=== PATIENT | male | born 1980 | race Caucasian/White ===

== ENCOUNTER 2018-07-09 12:48 | Outpatient (CLI) | payer BC ==
[~2018-07-09] VITALS: Ht 185.4 cm; Wt 117.9 kg
[~2018-07-09 12:48] MED LIST: AC325T PO; AMOX-358 PO; CEPH500C PO; DOXY-233 PO; DOXY100C2 PO; DOXY100C42 PO; IBUP-16 PO; IBUP200C92 PO; LISI-552 PO; LORA10TA7 PO; LORAZEPAM PO; NAPR-1071 PO; NAPR220C11 PO; NSTU5 PO; ONDA4TAB10 PO; ONDN4T PO; OXYC-188 PO; OXYC1TAB87 PO; RABE20TA PO; TRAM50TA2 PO
[2018-07-09] MEDS ORDERED: RABE20TA27 PO (13:23)
[2018-07-09] MEDS ORDERED: LISI40TA PO (13:23)
[2018-07-10] MEDS ORDERED: PANT40TA2 PO (12:47)
== END 2018-07-09 13:39 | disposition home or self-care (01) ==
LOC: PREOP 12:48
PROVIDERS: ATTEND Surgery
DX: Z01.818 Encounter for other preprocedural examination (principal)

== ENCOUNTER 2018-07-10 10:12 | Day surgery (SDC) | payer BC ==
[~2018-07-10] VITALS: Ht 185.4 cm; Wt 117.9 kg
[~2018-07-10 10:12] MED LIST changes: +LISI40TA PO; +RABE20TA27 PO
[2018-07-10] MEDS ORDERED: LACTATED RINGERS 1,000 ML IV ONE (10:21)
[2018-07-10 10:25] VITALS: BP 145/93
[2018-07-10] MEDS ORDERED: LACTATED RINGERS 1,000 ML IV PRN (10:45)
[2018-07-10] MEDS ORDERED: fentaNYL INJECTION 100 MCG/2 ML AMP IVP ONE (10:45)
[2018-07-10] MEDS ORDERED: MIDAZOLAM 2 MG/2 ML (VERSED) VIAL IVP ONE (10:45)
[2018-07-10] MEDS ORDERED: HURRICAINE EXT TUBE (BENZOCAINE) XX PRN (10:45)
[2018-07-10] MEDS ORDERED: PROPOFOL INJECTION 50 ML IV ONE (11:26)
[2018-07-10] MEDS ORDERED: MIDAZOLAM 2 MG/2 ML (VERSED) VIAL ONE ×2 (11:26→11:58)
--- NOTE | 2018-07-10 11:55 | Progress Note-Pre Operative ---
Pre-Operative Progress Note H&P Reviewed The H&P was reviewed, patient examined and no changes noted except GERD. Date Seen by Provider: Jul 10, 2018 Time Seen by Provider: 11:54 Date H&P Reviewed: Jul 10, 2018 Time H&P Reviewed: 11:55 Pre-Operative Diagnosis: GERD, change in bowel habits OTONIEL TAYLOR DO Jul 10, 2018 11:55
[2018-07-10] MEDS ORDERED: proPOfol 200 MG/20 ML (DIPRIVAN) VIAL IV ONE (12:26)
--- NOTE | 2018-07-10 12:46 | Progress Note-Post Operative ---
Post-Operative Progess Note Surgeon (s)/Commercial Real Estate Assistant (s) Surgeon OTONIEL TAYLOR DO Commercial Real Estate Assistant: na Pre-Operative Diagnosis GERD, change in bowel habits Post-Operative Diagnosis small hiatal hernia, reflux esophagitis, colon polyps x 3 Procedure & Operative Findings Date of Procedure 07/10/18 Procedure Performed/Findings egd c biopsies, colonoscopy c hot bx polypectomy and snare polypectomy x 2 rectosigmoid colon Anesthesia Type mac Estimated Blood Loss Estimated blood loss (mL): scant Specimens/Packing Specimens Removed antrum, ge,descending colon and rectosigmoid polyps x 2 OTONIEL TAYLOR DO Jul 10, 2018 12:45
[2018-07-10] MEDS ORDERED: PANT40TA2 PO (12:47)
--- NOTE | 2018-07-10 12:49 | Discharge Inst-Simple/Standard ---
Discharge Inst-Standard Discharge Medications New, Converted or Re-Newed RX: Transmitted to Pharmacy Patient Instructions/Follow Up Plan of Care/Instructions/FU: 2 weeks Valentín Activity as Tolerated: Yes Discharge Diet: Regular Diet OTONIEL TAYLOR DO Jul 10, 2018 12:49
[2018-07-10 13:10] VITALS: BP 149/63
[2018-07-10 13:40] VITALS: BP 135/86
[2018-07-10 14:05] VITALS: BP 135/86
--- NOTE | 2018-07-10 15:36 | Anesthesia-General Post-Op ---
MAC Patient Condition Mental Status/LOC: Same as Preop Cardiovascular: Satisfactory Nausea/Vomiting: Absent Respiratory: Satisfactory Pain: Controlled Complications: Absent Post Op Complications Complications None Follow Up Care/Instructions Patient Instructions None needed. Anesthesiology Discharge Order Discharge Order Patient is doing well, no complaints, stable vital signs, no apparent adverse anesthesia problems. KYLE ORTA DO Jul 10, 2018 15:36
--- NOTE | 2018-07-10 23:36 | OPERATIVE REPORT ---
DATE OF SERVICE: 07/10/2018 PREOPERATIVE DIAGNOSES: Change in bowel habits, gastroesophageal reflux disease. POSTOPERATIVE DIAGNOSES: Small hiatal hernia, reflux esophagitis, descending colon polyp and 2 rectosigmoid colon polyps. PROCEDURE: EGD with biopsies and colonoscopy with hot biopsy polypectomy of descending colon and snare polypectomy x2 of rectosigmoid polyps. SURGEON: Otoniel Laura DO ANESTHESIA: Per MDA. ESTIMATED BLOOD LOSS: Scant. COMPLICATIONS: None. INDICATIONS: The patient is a 37-year-old male with change in bowel habits and gastroesophageal reflux disease. He understands risks and benefits of procedure and wishes to proceed with procedure. Consent was signed in the chart. DESCRIPTION OF PROCEDURE: The patient was taken to the endoscopy suite and placed in the left lateral recumbent position. Timeout was performed. The scope was inserted in the mouth down the esophagus and into the stomach and duodenum without difficulty. There were no polyps, masses or ulcerations within the duodenum. The scope was slowly retracted back into the stomach where it was further insufflated. Biopsy of the antrum was obtained. There are no polyps, masses or ulcerations. The scope was retroflexed noting a small hiatal hernia. No other pathology noted. The scope was returned to its normal position, slowly withdrawn to the distal esophagus, which had some reflux esophagitis appearance. Biopsy of this area was obtained. The scope was then slowly retracted back to completely remove, noting no other pathology. Digital rectal exam was performed. There were no palpable polyps, mass or ulcerations. The scope was inserted in the rectum and advanced all the way to the cecum with minimal difficulty. There were no polyps, masses or ulceration. Prep was adequate. There were no polyps, masses or ulcerations in the cecum, ascending and transverse colon. Within the descending colon, a small polyp was present, which hot biopsy polypectomy was performed. The scope was continuously retracted back toward the anastomosis, which was present. No polyps, masses or ulcerations. No other pathology at the anastomosis. Just distal to this area, there were 2 small polyps, which had snare polypectomy performed on both and sent in the same specimen. The scope was continuously retracted back into the rectum where it was also retroflexed noting no other pathology. The scope was returned to its normal position, slowly withdrawn until completely removed. The patient tolerated the procedure well without any complications, taken to recovery room in stable condition. RECOMMENDATIONS: The patient on Aciphex, we will change that to Protonix to see if any improvement. We will have him follow up in 2 weeks to discuss pathology results. The patient will need repeat endoscopy in 3 to 5 years. Job ID: [id number] DocumentID: [id number] Dictated Date: 07/10/2018 12:55:41 Machine Gunner Date: 07/10/2018 23:35:44 Dictated By: OTONIEL LAURA DO
== END 2018-07-10 14:05 | disposition home or self-care (01) ==
LOC: ENDO 10:12
PROVIDERS: ATTEND Surgery
DX: K21.0 Gastro-esophageal reflux disease with esophagitis (principal); K44.9 Diaphragmatic hernia without obstruction or gangrene; D12.4 Benign neoplasm of descending colon; K63.5 Polyp of colon; I10 Essential (primary) hypertension; Z79.899 Other long term (current) drug therapy; Z87.891 Personal history of nicotine dependence

== ENCOUNTER 2018-10-20 14:40 | Observation (INO) | payer BC ==
[2018-10-20] VITALS (16 sets, daily range): BP systolic 81–144; BP diastolic 46–96
[~2018-10-20] VITALS: Ht 185.4 cm; Wt 122.2 kg
[~2018-10-20 14:40] MED LIST changes: +PANT40TA2 PO
--- NOTE | 2018-10-20 14:49 | ED Chest Pain ---
General Chief Complaint: Chest pain, nausea, SOB Stated Complaint: CHEST PAIN; NAUSEA; SOB Source: patient, family History of Present Illness Date Seen by Provider: Oct 20, 2018 Time Seen by Provider: 14:49 Timing/Duration: 1 hour Severity/Quality: moderate Location: substernal Radiation: jaw, arms (left) Activities at Onset: rest Prior CP/Workup: no prior cardiac workup ASA po PHOSPHORUS PROCESSING SUPERVISOR: No NTG SL PHOSPHORUS PROCESSING SUPERVISOR: No 38 y/o M with history of HTN, GERD and family history of CAD (father at 39 from [place]) presents with sharp central substernal chest pain that radiates to his jaw and L arm. Pain has been constant, started about 1 hour ago when he woke from sleep. Has associated nausea, diaphoresis, shortness of breath. Nothing seems to improve or worsen. Has been taking GERD meds, this is different than his GERD. Allergies and Home Medications Allergies Coded Allergies: sulfamethoxazole (Verified Allergy, Intermediate, PATIENT GOT DEHYDRATED, 07/09/18) trimethoprim (Verified Allergy, Intermediate, PATIENT GOT DEHYDRATED, ) coconut oil (Verified Allergy, Unknown, 07/09/18) Home Medications Amlodipine Besylate 10 Mg Tablet, 10 MG PO DAILY, (Reported) Pantoprazole Sodium 40 Mg Tablet.dr, 40 MG PO DAILY Prescribed by: OTONIEL TAYLOR on 07/10/18 1247 Patient Home Medication List Home Medication List Reviewed: Yes Review of Systems Review of Systems Constitutional: No chills, No fever EENTM: No Blurred Vision, No Double Vision Respiratory: Denies Cough; Shortness of Air, SOA at Rest Cardiovascular: See HPI, Chest Pain; Denies Edema, Denies Palpitations, Denies Syncope Gastrointestinal: Denies Abdominal Pain; Nausea; Denies Vomiting Genitourinary: Denies Flank Pain, Denies Hematuria Musculoskeletal: No back pain, No joint pain, No muscle pain Skin: No lesions, No rash Psychiatric/Neurological: Denies Numbness, Denies Tingling Past Brospzd-Zwmanc-Ctntwr Hx Past Med/Social Hx: Reviewed Nursing Past Med/Soc Hx Patient Social History Type Used: Cigarettes Former Smoker, Quit: Jul 11, 2013 Recent Hopitalizations: No Immunizations Up To Date Tetanus Booster (TDap): Less than 5yrs Seasonal Allergies Seasonal Allergies: Yes Past Medical History Gallbladder Meningitis Reproductive Disorders: No Sexually Transmitted Disease: No HIV/AIDS: No UTI-Chronic Gastroesophageal Reflux, Chronic Constipation, Chronic Diarrhea, Hiatal Hernia Arthritis, Chronic Back Pain Loss of Vision: Denies Hearing Impairment: Denies Anxiety Adverse Reaction/Blood Tranf: No (N/A) Family Medical History Abdominal aortic aneurysm 19 FATHER Alcoholism 19 MOTHER Cancer 19 MOTHER Cataract 19 FATHER 19 MOTHER Chest pain 19 FATHER 19 MOTHER Congestive heart failure 19 FATHER 19 MOTHER Family history: Arthritis 19 FATHER 19 MOTHER Family history: Cardiovascular disease Family history: Diabetes mellitus 19 MOTHER Family history: Hypertension 19 FATHER 19 MOTHER Heart disease 19 FATHER 19 MOTHER History of drug abuse 19 MOTHER Hypercholesterolemia 19 FATHER Kidney disease Myocardial infarction 19 FATHER No Family History of: [place]'s disease Aphasia Cancer of colon Congenital heart disease Cystic fibrosis Dementia Dysphagia Family history: Allergy Family history: Alzheimer's disease Family history: Asthma Family history: Breast disease Family history: Coronary thrombosis Family history: Gastrointestinal disease Family history: Glaucoma Family history: Osteoporosis Family history: Thyroid disorder Headache Hearing loss Hereditary disease History of - anemia History of - disorder History of - respiratory disease Human immunodeficiency virus (HIV) seropositivity Infertile Malignant neoplasm of lung Parkinson's disease Prostate cancer Psychotic disorder Seizure disorder Stroke Tuberculosis Visual impairment No Pertinent Family Hx Physical Exam Vital Signs Vital Signs - First Documented Capillary Refill : Height, Weight, BMI Height: 6'1.00" Weight: 260lbs. 0.0oz. 117.101323hb; 34.3 BMI Method:Stated General Appearance: Anxious, Mild Distress HEENT: PERRL/EOMI, Normal ENT Inspection Neck: Full Range of Motion, Normal Inspection, Non Tender Respiratory: Chest Non Tender, Lungs Clear, Normal Breath Sounds, No Accessory Muscle Use, No Respiratory Distress Cardiovascular: Regular Rate, Rhythm, No Edema, No Gallop, No JVD, No Murmur, Normal Peripheral Pulses Gastrointestinal: Normal Bowel Sounds, No Organomegaly, No Pulsatile Mass, Non Tender Extremity: Normal Capillary Refill, Normal Inspection, Normal Range of Motion, Non Tender, No Calf Tenderness, No Pedal Edema Neurologic/Psychiatric: Alert, Oriented x3, No Motor/Sensory Deficits, Normal Mood/Affect Skin: Normal Color, Warm/Dry Progress/Results/Core Measures Results/Orders Lab Results Laboratory Tests Test 10/20/18 14:55 10/20/18 16:40 Range/Units White Blood Count 9.1 4.3-11.0 10^3/uL Red Blood Count 5.62 4.35-5.85 10^6/uL Hemoglobin 15.3 13.3-17.7 G/DL Hematocrit 46 40-54 % Mean Corpuscular Volume 81 80-99 FL Mean Corpuscular Hemoglobin 27 25-34 PG Mean Corpuscular Hemoglobin Concent 34 32-36 G/DL Red Cell Distribution Width 14.2 10.0-14.5 % Platelet Count 183 130-400 10^3/uL Mean Platelet Volume 9.6 7.4-10.4 FL Neutrophils (%) (Auto) 44 42-75 % Lymphocytes (%) (Auto) 45 H 12-44 % Monocytes (%) (Auto) 8 0-12 % Eosinophils (%) (Auto) 2 0-10 % Basophils (%) (Auto) 1 0-10 % Neutrophils # (Auto) 4.0 1.8-7.8 X 10^3 Lymphocytes # (Auto) 4.0 1.0-4.0 X 10^3 Monocytes # (Auto) 0.7 0.0-1.0 X 10^3 Eosinophils # (Auto) 2.0 H 0.0-0.3 10^3/uL Basophils # (Auto) 0.1 0.0-0.1 10^3/uL Prothrombin Time 13.6 12.2-14.7 SEC INR Comment 1.0 0.8-1.4 Activated Partial Thromboplast Time 27 24-35 SEC D-Dimer 0.25 0.00-0.49 UG/ML Sodium Level 139 135-145 MMOL/L Potassium Level 3.8 3.6-5.0 MMOL/L Chloride Level 100 98-107 MMOL/L Carbon Dioxide Level 21 21-32 MMOL/L Anion Gap 18 H 5-14 MMOL/L Blood Urea Nitrogen 7 7-18 MG/DL Creatinine 1.11 0.60-1.30 MG/DL Estimat Glomerular Filtration Rate > 60 BUN/Creatinine Ratio 6 Glucose Level 258 H 70-105 MG/DL Calcium Level 9.0 8.5-10.1 MG/DL Corrected Calcium 8.7 8.5-10.1 MG/DL Magnesium Level 1.9 1.8-2.4 MG/DL Total Bilirubin 0.6 0.1-1.0 MG/DL Aspartate Amino Transf (AST/SGOT) 24 5-34 U/L Alanine Aminotransferase (ALT/SGPT) 46 0-55 U/L Alkaline Phosphatase 115 40-136 U/L Troponin T < 6 <=15 NG/L Pro-B-Type Natriuretic Peptide < 5.0 <75.0 PG/ML Total Protein 7.1 6.4-8.2 GM/DL Albumin 4.4 3.2-4.5 GM/DL Lipase 34 8-78 U/L My Orders Orders - CAMACHO CANAS MD Cbc With Automated Diff (10/20/18 14:56) Magnesium (10/20/18 14:56) Chest 1 View Ap/Pa Only (10/20/18 14:56) Ekg Tracing (10/20/18 14:56) Comprehensive Metabolic Panel (10/20/18 14:56) Protime With Inr (10/20/18 14:56) Partial Thromboplastin Time (10/20/18 14:56) O2 (10/20/18 14:56) Monitor-Rhythm Ecg Trace Only (10/20/18 14:56) Aspirin Chewable Tablet (Baby Aspirin Ch (10/20/18 15:00) Morphine Injection (Morphine Injection (10/20/18 14:56) Saline Lock/Iv-Start (10/20/18 14:56) Lipase (10/20/18 14:56) Troponin T (10/20/18 14:56) Probnp Fs (10/20/18 14:56) Fibrin Degradation Products (10/20/18 14:56) Urinalysis (10/20/18 16:25) Drug Screen Stat (Urine) (10/20/18 16:25) Metoprolol Succinate (Xl) Tab (Toprol Xl (10/21/18 09:00) Medications Given in ED Current Medications Medications Dose Ordered Sig/Naricso Route Start Time Stop Time Status Last Admin Dose Admin Aspirin 324 mg ONCE ONCE PO 10/20/18 15:00 10/20/18 15:01 DC 10/20/18 15:05 324 MG Vital Signs/I&O 10/20/18 10/20/18 14:42 14:42 Temp 97.6 Pulse 70 Resp 24 B/P (MAP) 141/93 (109) Pulse Ox 99 O2 Delivery Room Air Room Air Initial ECG Impression Date: Oct 20, 2018 Initial ECG Impression Time: 14:46 Initial ECG Comparisson: No Previous ECG Available Comment NSR 70 bpm, normal axis, normal intervals, RSR in V2, no STEMI. Diagnostic Imaging Diagonstic Imaging: Xray Plain Films/CT/US/NM/MRI: chest Comments no acute process. Departure Communication (Admissions) Time/Spoke to Admitting Phy: 16:[address] Jarrett, who will admit for Observation continued care. Requests UA, UDS, Dr. Mchugh to be notified. Time/Spoke to Consulting Phy: 16:[address] Mchugh, recommends ASA 325 total, admit for r/o, BB metoprolol xl 50 mg, will eval in AM. Impression Primary Impression: Chest pain Disposition: ADMITTED INPATIENT (OBS) Condition: Stable Admissions Decision to Admit Reason: Admit from ER (General) Decision to Admit/Date: Oct 20, 2018 Time/Decision to Admit Time: 16:15 Departure-Patient Inst. Referrals: [facility] (PCP/Family) Primary Care Physician CAMACHO CANAS MD Oct 20, 2018 14:49
[2018-10-20] MEDS ORDERED: morphine INJ 10 MG/ML 1ML (SYR OR VIAL) IV STA (14:56)
[2018-10-20] MEDS ORDERED: ASPIRIN 81 MG CHEW (CHILDREN'S ASA) PO ONE (15:00)
[2018-10-20 15:11] LABS: BASOPHILS # (AUTO) 0.1 10^3/uL (0.0-0.1); BASOPHILS % (AUTO) 1 % (0-10); EOSINOPHILS % (AUTO) 2 % (0-10); HEMATOCRIT 46 % (40-54); HEMOGLOBIN 15.3 G/DL (13.3-17.7); LYMPHOCYTES % (AUTO) 45 % (12-44); MEAN CORPUSCULAR HEMOGLOBIN 27 PG (25-34); MEAN CORPUSCULAR HGB CONC 34 G/DL (32-36); MEAN CORPUSCULAR VOLUME 81 FL (80-99); MEAN PLATELET VOLUME 9.6 FL (7.4-10.4); MONOCYTES # (AUTO) 0.7 X 10^3 (0.0-1.0); MONOCYTES % (AUTO) 8 % (0-12); NEUTROPHILS % (AUTO) 44 % (42-75); PLATELET COUNT 183 10^3/uL (130-400); RED CELL DISTRIBUTION WIDTH 14.2 % (10.0-14.5); WHITE BLOOD COUNT 9.1 10^3/uL (4.3-11.0)
[2018-10-20 15:21] LABS: PROTHROMBIN TIME PATIENT 13.6 SEC (12.2-14.7)
[2018-10-20 15:39] LABS: ALKALINE PHOSPHATASE 115 U/L (40-136); BILIRUBIN,TOTAL 0.6 MG/DL (0.1-1.0); BUN/CREATININE RATIO 6; CARBON DIOXIDE 21 MMOL/L (21-32); CHLORIDE 100 MMOL/L (98-107); CREATININE SERUM 1.11 MG/DL (0.60-1.30); GFR ESTIMATED > 60; GLUCOSE 258 MG/DL (70-105); MAGNESIUM 1.9 MG/DL (1.8-2.4); POTASSIUM 3.8 MMOL/L (3.6-5.0); SODIUM 139 MMOL/L (135-145)
[2018-10-20 15:40] LABS: ALANINE AMINOTRANSFERASE 46 U/L (0-55); ALBUMIN 4.4 GM/DL (3.2-4.5); TOTAL PROTEIN 7.1 GM/DL (6.4-8.2)
[2018-10-20] MEDS ORDERED: AMLO10TA7 PO (15:40)
--- NOTE | 2018-10-20 15:41 | Diagnostic Imaging Report ---
INDICATION: Chest pain. TIME OF EXAM: 02:18 p.m. COMPARISON: Correlation is made with prior study from 10/17/2015. FINDINGS: The heart size is normal. The pulmonary vascularity is unremarkable. The lungs are clear. No infiltrate, effusion or pneumothorax is detected. IMPRESSION: No acute cardiopulmonary process is detected. Dictated by: Dictated on workstation # [id number]
[2018-10-20] MEDS ORDERED: HYDR-3812 (15:42)
[2018-10-20 15:59] LABS: LIPASE 34 U/L (8-78)
[2018-10-20 16:56] LABS: CLARITY,URINE CLEAR; COLOR,URINE YELLOW; PROTEIN,URINE NEGATIVE (NEGATIVE)
[2018-10-20 16:57] LABS: BILIRUBIN,URINE NEGATIVE (NEGATIVE); GLUCOSE, URINE (UA) 3+ (NEGATIVE); KETONES,URINE NEGATIVE (NEGATIVE); LEUKOCYTE ESTERASE ,URINE NEGATIVE (NEGATIVE); NITRITE,URINE NEGATIVE (NEGATIVE); SQUAMOUS EPITHELIAL CELL,UR RARE /HPF; UROBILINOGEN,URINE 0.2 MG/DL (NORMAL)
[2018-10-20] MEDS ORDERED: NITROGLYCERIN 0.4 MG SL TABS BTL 25'S SL ONE (16:58)
[2018-10-20] MEDS ORDERED: NITROGLYCERIN 0.4 MG SL TABS BTL 25'S SL PRN ×2 (17:00→19:00)
[2018-10-20 17:04] LABS: AMPHETAMINE SCREEN, URINE NEGATIVE (NEGATIVE); BARBITURATE SCREEN URINE NEGATIVE (NEGATIVE); BENZODIAZEPINES SCREEN URINE NEGATIVE (NEGATIVE); CANNABINOID SCREEN, URINE NEGATIVE (NEGATIVE); COCAINE SCREEN URINE NEGATIVE (NEGATIVE); METHADONE STAT NEGATIVE (NEGATIVE); METHAMPHETAMINE SCREEN URINE S NEGATIVE (NEGATIVE); OPIATE SCREEN URINE POSITIVE (NEGATIVE); OXYCODONE STAT NEGATIVE (NEGATIVE); PROPOXYPHENE STAT NEGATIVE (NEGATIVE); TRICYCLIC ANTIDEPRESSANTS SCRE NEGATIVE (NEGATIVE)
[2018-10-20] MEDS ORDERED: meTOproloL SUCCINATE 50 MG (TOPROL XL) TAB PO ONE (17:04)
--- NOTE | 2018-10-20 17:45 | NUR ---
PT DEPARTING ER TO [facility] AT THIS TIME. PT IS PAIN FREE.
[2018-10-20] MEDS ORDERED: morphine INJ 4 MG/ML 1 ML (VIAL/SYRINGE) IV PRN (19:00)
--- NOTE | 2018-10-20 19:00 | NUR ---
Received report from Ana 4th floor RN after she got pt settled into his room. NANETTE NATHAN admitted to room 409-1, with an admitting diagnosis of chest pain, on 10/20/18 from ED via EMS transportation, accompanied by .NANETTE NATHAN introduced to surroundings, call light, bed controls, phone, TV, temperature control, lights, meal times, smoking policy, visitor policy, side rail policy, bathrooms and showers. Patient Rights given to patient in the handbook. NANETTE NATHAN verbalizes understanding that [facility] is not responsible for the loss or damage to any personal effects or valuables that are kept in the patients posession during their hospitalization. NANETTE NATHAN verbalizes understanding of Interdisciplinary Patient Education. Patient and/or family were informed about the Rapid Response Team and its purpose.
[2018-10-20] MEDS ORDERED: diphenhydrAMINE 25 MG TAB (BENADRYL) PO PRN (20:30)
[2018-10-20] MEDS ORDERED: ONDANSETRON 4 MG/2 ML (SDV) Z0FRAN IVP PRN (20:30)
[2018-10-20] MEDS ORDERED: DOCUSATE SODIUM 100 MG (COLACE) CAP PO PRN (20:30)
[2018-10-20] MEDS ORDERED: ALPRAZolam 0.25 MG (XANAX) TAB PO PRN (20:30)
[2018-10-20] MEDS ORDERED: fentaNYL INJECTION 100 MCG/2 ML AMP IVP PRN (20:30)
[2018-10-20] MEDS ORDERED: HYDROcodone/APAP 5 MG/325 MG (LORTAB) TAB PO PRN (20:30)
[2018-10-20] MEDS ORDERED: ONDANSETRON 4 MG (ZOFRAN) ORAL DISSOLVE TAB PO PRN (20:30)
[2018-10-20] MEDS ORDERED: MELATONIN 3 MG TABLET PO PRN (20:30)
[2018-10-20] MEDS ORDERED: CALCIUM CARBONATE 500 MG (TUMS) TAB.CHEW PO PRN (20:30)
[2018-10-20] MEDS ORDERED: ACETAMINOPHEN 500 MG TAB (TYLENOL) PO PRN (20:30)
[2018-10-20] MEDS ORDERED: LOPERAMIDE 2 MG (IMODIUM) CAP PO PRN (20:30)
--- NOTE | 2018-10-20 21:43 | Consultation-Cardiology ---
HPI-Cardiology Cardiology Consultation: Date of Consultation 10/20/18 Time Seen by a Provider: 21:10 Date of Admission Attending Physician Sarah Jarrett DO Admitting Physician [place] Consulting Physician GIDEON DALLAS MD, MA, FACP, FACC, [facility], [facility] Physician requesting consult: Dr Jarrett HPI: Chief Complaint: CC: Chest discomfort HPI 38 yo man with an episode chest discomfort: L parasternal, radiating to L shoulder, moderate in intensity, sharp or stabbing, w/o any aggravating or relieving factors, lasting about an hour, not associated with other symptoms, not experienced before Has chronic, mod exertional shortness of breath No palp or syncope or leg swelling Review of Systems-Cardiology Review of Systems Constitutional: No weight loss, No weight gain Eyes: No vision change Ears/Nose/Throat: No ear discharge, No nasal drainage, No recent hearing loss Respiratory: As described under HPI Cardiovascular: As described under HPI Gastrointestinal: No constipation, No diarrhea, No nausea, No vomiting Genitourinary: No dysuria, No hematuria, No urine frequency changes Musculoskeletal: No back pain, No joint pain Skin: No rash, No ulcerations Psychiatric/Neurological: No seizure, No focal weakness, No syncope Hematologic: No bleeding abnormalities GKY-[id number]-Pwwspe Hx Patient Social History Alcohol Use: Rarely Uses Recreational Drug Use: Yes (NONE IN 2 MO) Drug of Choice: THC Smoking Status: Former Smoker Former smoker/When Quit: Feb 02, 2012 Type Used: Cigarettes Recent Foreign Travel: No Recent Infectious Disease Expo: No Hospitalization with Isolation: Denies Immunizations Up To Date Tetanus Booster (TDap): Less than 5yrs Past Medical History PMH As described under Assessment. Family Medical History Family History: Abdominal aortic aneurysm 19 FATHER Alcoholism 19 MOTHER Cancer 19 MOTHER Cataract 19 FATHER 19 MOTHER Chest pain 19 FATHER 19 MOTHER Congestive heart failure 19 FATHER 19 MOTHER Family history: Arthritis 19 FATHER 19 MOTHER Family history: Cardiovascular disease Family history: Diabetes mellitus 19 MOTHER Family history: Hypertension 19 FATHER 19 MOTHER Heart disease 19 FATHER 19 MOTHER History of drug abuse 19 MOTHER Hypercholesterolemia 19 FATHER Kidney disease Myocardial infarction 19 FATHER No Family History of: [place]'s disease Aphasia Cancer of colon Congenital heart disease Cystic fibrosis Dementia Dysphagia Family history: Allergy Family history: Alzheimer's disease Family history: Asthma Family history: Breast disease Family history: Coronary thrombosis Family history: Gastrointestinal disease Family history: Glaucoma Family history: Osteoporosis Family history: Thyroid disorder Headache Hearing loss Hereditary disease History of - anemia History of - disorder History of - respiratory disease Human immunodeficiency virus (HIV) seropositivity Infertile Malignant neoplasm of lung Parkinson's disease Prostate cancer Psychotic disorder Seizure disorder Stroke Tuberculosis Visual impairment Allergies and Home Medications Allergies Coded Allergies: sulfamethoxazole (Verified Allergy, Intermediate, PATIENT GOT DEHYDRATED, 07/09/18) trimethoprim (Verified Allergy, Intermediate, PATIENT GOT DEHYDRATED, ) coconut oil (Verified Allergy, Unknown, 07/09/18) Home Medications Amlodipine Besylate 10 Mg Tablet, 10 MG PO DAILY, (Reported) Pantoprazole Sodium 40 Mg Tablet.dr, 40 MG PO DAILY Prescribed by: OTONIEL TAYLOR on 07/10/18 1247 Patient Home Medication List Home Medication List Reviewed: Yes Physical Exam-Cardiology Physical Exam Vital Signs/I&O 10/20/18 10/20/18 10/20/18 10/20/18 14:42 14:42 14:45 15:00 Temp 97.6 97.6 Pulse 70 70 71 Resp 24 24 24 B/P (MAP) 141/93 (109) 141/93 (109) 133/91 (105) Pulse Ox 99 99 96 O2 Delivery Room Air Room Air Room Air Room Air 10/20/18 10/20/18 10/20/18 10/20/18 15:15 15:30 15:45 16:00 Pulse 76 75 73 66 Resp 22 16 14 20 B/P (MAP) 143/96 (112) 139/88 (105) 139/81 (100) 144/77 (99) Pulse Ox 97 97 95 94 O2 Delivery Room Air Room Air Room Air Room Air 10/20/18 10/20/18 10/20/18 10/20/18 16:15 16:30 16:45 17:00 Pulse 81 75 75 76 Resp 15 22 16 14 B/P (MAP) 137/85 (102) 143/87 (105) 135/93 (107) 140/91 (107) Pulse Ox 98 96 96 98 O2 Delivery Room Air Room Air Room Air Room Air 10/20/18 10/20/18 10/20/18 10/20/18 17:15 17:30 17:45 18:42 Temp 97.6 97.5 Pulse 74 63 63 64 Resp 16 16 20 18 B/P (MAP) 81/46 (58) 95/53 (67) 95/53 (67) 116/77 Pulse Ox 95 96 96 97 O2 Delivery Room Air Room Air Room Air Room Air 10/20/18 10/20/18 10/20/18 10/20/18 18:45 18:46 19:50 19:54 Temp 97.5 97.5 97.5 Pulse 64 62 66 Resp 18 18 B/P (MAP) 116/77 (90) 116/77 (90) 113/71 (85) Pulse Ox 97 97 O2 Delivery Room Air Room Air Capillary Refill : Less Than 3 Seconds Constitutional: AAO x 3, well-nourished HEENT: PERRL, EOMI, hearing is well preserved; No xanthelasmas are seen Neck: carotid pulses are 2 + bilaterally, with good upstrokes Respiratory: No accessory muscle use; lungs clear to percussion, lungs clear to auscultation Cardiovascular: regular rate-rhythm, S1 and S2, systolic murmur (faint CLEO at card base) Gastrointestinal: No tender; soft; No guarding, No rebound; audible bowel sounds Extremities: No clubbing, No cyanosis, No significant edema Neurologic/Psychiatric: oriented x 3, grossly intact, power is 5/5 both on sides Skin: No rash on exposed areas, No ulcerations on exposed areas Data Review Labs Laboratory Tests 10/20/18 14:55: White Blood Count 9.1, Red Blood Count 5.62, Hemoglobin 15.3, Hematocrit 46, Mean Corpuscular Volume 81, Mean Corpuscular Hemoglobin 27, Mean Corpuscular Hemoglobin Concent 34, Red Cell Distribution Width 14.2, Platelet Count 183, Mean Platelet Volume 9.6, Neutrophils (%) (Auto) 44, Lymphocytes (%) (Auto) 45H , Monocytes (%) (Auto) 8, Eosinophils (%) (Auto) 2, Basophils (%) (Auto) 1, Neutrophils # (Auto) 4.0, Lymphocytes # (Auto) 4.0, Monocytes # (Auto) 0.7, Eosinophils # (Auto) 2.0H, Basophils # (Auto) 0.1, Prothrombin Time 13.6, INR Comment 1.0, Activated Partial Thromboplast Time 27, D-Dimer 0.25, Sodium Level 139, Potassium Level 3.8, Chloride Level 100, Carbon Dioxide Level 21, Anion Gap 18H, Blood Urea Nitrogen 7, Creatinine 1.11, Estimat Glomerular Filtration Rate > 60, BUN/Creatinine Ratio 6, Glucose Level 258H, Calcium Level 9.0, Corrected Calcium 8.7, Magnesium Level 1.9, Total Bilirubin 0.6, Aspartate Amino Transf (AST/SGOT) 24, Alanine Aminotransferase (ALT/SGPT) 46, Alkaline Phosphatase 115, Troponin T < 6, Pro-B-Type Natriuretic Peptide < 5.0, Total Protein 7.1, Albumin 4.4, Lipase 34 10/20/18 16:40: Urine Color YELLOW, Urine Clarity CLEAR, Urine pH 6.0, Urine Specific [place] 1.015L, Urine Protein NEGATIVE, Urine Glucose (UA) 3+H, Urine Ketones NEGATIVE, Urine Nitrite NEGATIVE, Urine Bilirubin NEGATIVE, Urine Urobilinogen 0.2, Urine Leukocyte Esterase NEGATIVE, Urine RBC (Auto) NEGATIVE, Urine RBC NONE, Urine WBC NONE, Urine Squamous Epithelial Cells RARE, Urine Crystals NONE, Urine Bacteria NONE, Urine Casts NONE, Urine Mucus NEGATIVE, Urine Culture Indicated NO, Urine Opiates Screen POSITIVEH, Urine Oxycodone Screen NEGATIVE, Urine Methadone Screen NEGATIVE, Urine Propoxyphene Screen NEGATIVE, Urine Barbiturates Screen NEGATIVE, Ur Tricyclic Antidepressants Screen NEGATIVE, Urine Phencyclidine Screen NEGATIVE, Urine Amphetamines Screen NEGATIVE, Urine Methamphetamines Screen NEGATIVE, Urine Benzodiazepines Screen NEGATIVE, Urine Cocaine Screen NEGATIVE, Urine Cannabinoids Screen NEGATIVE 10/20/18 21:01: Troponin I < 0.028 Laboratory Tests 10/20/18 14:55 A/P-Cardiology Assessment/Admission Diagnosis Chest discomfort, non-specific, etiology undetermined Hyperglycemia, suggestive of DM II Hypertension Fam h/o early CAD (father suddenly at age 39) Obesity with BMI 35.5 H/o partial L nephrectomy for a renal cancer the details of which are not known to the patient and for which he follows at H/o colon resection of diverticulitis Discussion and Recomendations * Treat with ASA and beta-biju * Serial card enz and ECG * Dr Mix covering Card Svce beginning tomorrow Clinical Quality Measures AMI/AHF: ASA po Prior to arrival: GIDEON Cazares MD [facility] Oct 20, 2018 21:43
[2018-10-21] VITALS: BP 115/75
[2018-10-21 04:10] VITALS: BP 114/74
[2018-10-21 06:10] LABS: BASOPHILS # (AUTO) 0.1 10^3/uL (0.0-0.1); BASOPHILS % (AUTO) 1 % (0-10); EOSINOPHILS # (AUTO) 0.2 10^3/uL (0.0-0.3); EOSINOPHILS % (AUTO) 2 % (0-10); HEMATOCRIT 44 % (40-54); HEMOGLOBIN 14.8 G/DL (13.3-17.7); LYMPHOCYTES # (AUTO) 3.5 X 10^3 (1.0-4.0); LYMPHOCYTES % (AUTO) 38 % (12-44); MEAN CORPUSCULAR HEMOGLOBIN 27 PG (25-34); MEAN CORPUSCULAR HGB CONC 34 G/DL (32-36); MEAN CORPUSCULAR VOLUME 80 FL (80-99); MEAN PLATELET VOLUME 9.8 FL (7.4-10.4); MONOCYTES # (AUTO) 0.6 X 10^3 (0.0-1.0); MONOCYTES % (AUTO) 7 % (0-12); NEUTROPHILS # (AUTO) 4.8 X 10^3 (1.8-7.8); NEUTROPHILS % (AUTO) 52 % (42-75); PLATELET COUNT 210 10^3/uL (130-400); RED CELL DISTRIBUTION WIDTH 15.2 % (10.0-14.5); WHITE BLOOD COUNT 9.1 10^3/uL (4.3-11.0)
[2018-10-21 06:29] LABS: ALANINE AMINOTRANSFERASE 60 U/L (0-55); ALBUMIN 4.1 GM/DL (3.2-4.5); ALKALINE PHOSPHATASE 71 U/L (40-136); BILIRUBIN,TOTAL 0.7 MG/DL (0.1-1.0); BUN/CREATININE RATIO 8; CALCIUM 8.9 MG/DL (8.5-10.1); CARBON DIOXIDE 25 MMOL/L (21-32); CHLORIDE 104 MMOL/L (98-107); CHOLESTEROL 180 MG/DL (< 200); GFR ESTIMATED > 60; GLUCOSE 153 MG/DL (70-105); HDL CHOLESTEROL 30 MG/DL (40-60); SODIUM 139 MMOL/L (135-145); TOTAL PROTEIN 6.7 GM/DL (6.4-8.2); TRIGLYCERIDES 161 MG/DL (<150); VLDL CHOLESTEROL 32 MG/DL (5-40)
[2018-10-21 08:00] VITALS: BP 121/72
[2018-10-21] MEDS ORDERED: PANT40TA3 PO (08:32)
[2018-10-21] MEDS ORDERED: meTOproloL SUCCINATE 50 MG (TOPROL XL) TAB PO ONE (09:00)
[2018-10-21] MEDS: ASPIRIN 81 MG CHEW (CHILDREN'S ASA) PO SCH (09:25)
[2018-10-21] MEDS: meTOproloL SUCCINATE 50 MG (TOPROL XL) TAB PO SCH (09:51)
[2018-10-21] MEDS ORDERED: REGADENOSON 0.4 MG/5 ML SYR (LEXISCAN) IV ONE (11:00)
--- NOTE | 2018-10-21 11:06 | Short Stay Summary-Hospitalist ---
History of Present Illness HPI/Chief Complaint CC: Chest pain HPI: This is a 38yoWM clinic patient of [facility] Shelbi Chakraborty who has h/o HTN and GERD who presented to the [facility] ER with chest pain and nausea. He states his father of an AMI at 39yo. Patient was deemed stable and in need of risk stratification and Cardiology has arranged ECHO today then EST tomorrow. Patient does not smoke. Source: patient, RN/MD Exam Limitations: no limitations Date Seen 10/21/18 Time Seen by a Provider: 10:30 Attending Physician Sarah Jarrett DO [facility] Referring Physician Date of Admission Oct 20, 2018 at 16:29 Home Medications & Allergies Home Medications Reviewed patient Home Medication Reconciliation performed by pharmacy medication reconciliations fibre composite technician and/or nursing. Patients Allergies have been reviewed. Allergies Allergies Coded Allergies sulfamethoxazole (Verified Allergy, Intermediate, PATIENT GOT DEHYDRATED, ) trimethoprim (Verified Allergy, Intermediate, PATIENT GOT DEHYDRATED, 07/09/18 ) coconut oil (Verified Allergy, Unknown, 07/09/18) Past Hetoxnp-[id number]-Psgmxu Hx Past Med/Social Hx: Reviewed Nursing Past Med/Soc Hx, Reviewed and Corrections made Patient Social History Marrital Status: Employed/Student: employed ([employer] 3 yrs) Alcohol Use: Rarely Uses Alcohol Beverage of Choice: Beer Recreational Drug Use: Yes (NONE IN 2 MO) Drug of Choice: THC Smoking Status: Former Smoker Former Smoker, Quit: Jul 11, 2013 Type Used: Cigarettes Recent Foreign Travel: No Contact w/other who traveled: No Recent Hopitalizations: No Recent Infectious Disease Expo: No Immunizations Up To Date Tetanus Booster (TDap): Less than 5yrs Seasonal Allergies Seasonal Allergies: Yes Past Medical History Surgeries: Gallbladder Cardiac: Hypertension Neurological: Meningitis Reproductive: No Sexually Transmitted Disease: No HIV/AIDS: No Genitourinary: UTI-Chronic Gastrointestinal: Gastroesophageal Reflux, Chronic Constipation, Chronic Diarrhea, Hiatal Hernia Musculoskeletal: Arthritis, Chronic Back Pain Loss of Vision: Denies Hearing Impairment: Denies Cancer: Kidney Psychosocial: Anxiety History of Blood Disorders: No Adverse Reaction to Blood Del Real: No (N/A) Family History Abdominal aortic aneurysm 19 FATHER Alcoholism 19 MOTHER Cancer 19 MOTHER Cataract 19 FATHER 19 MOTHER Chest pain 19 FATHER 19 MOTHER Congestive heart failure 19 FATHER 19 MOTHER Family history: Arthritis 19 FATHER 19 MOTHER Family history: Cardiovascular disease Family history: Diabetes mellitus 19 MOTHER Family history: Hypertension 19 FATHER 19 MOTHER Heart disease 19 FATHER 19 MOTHER History of drug abuse 19 MOTHER Hypercholesterolemia 19 FATHER Kidney disease Myocardial infarction 19 FATHER No Family History of: Patrick's disease Aphasia Cancer of colon Congenital heart disease Cystic fibrosis Dementia Dysphagia Family history: Allergy Family history: Alzheimer's disease Family history: Asthma Family history: Breast disease Family history: Coronary thrombosis Family history: Gastrointestinal disease Family history: Glaucoma Family history: Osteoporosis Family history: Thyroid disorder Headache Hearing loss Hereditary disease History of - anemia History of - disorder History of - respiratory disease Human immunodeficiency virus (HIV) seropositivity Infertile Malignant neoplasm of lung Parkinson's disease Prostate cancer Psychotic disorder Seizure disorder Stroke Tuberculosis Visual impairment No Pertinent Family Hx Review of Systems Constitutional: see HPI EENTM: no symptoms reported Respiratory: no symptoms reported Cardiovascular: chest pain Gastrointestinal: nausea Genitourinary: no symptoms reported Musculoskeletal: no symptoms reported Skin: no symptoms reported Psychiatric/Neurological: No Symptoms Reported All Other Systems Reviewed Negative Unless Noted: Yes Physical Exam Physical Exam Vital Signs Vital Signs - First Documented Capillary Refill : Less Than 3 Seconds Height, Weight, BMI Height: 6'1.00" Weight: 269lbs. 5.0oz. 122.304410wj; 35.5 BMI Method:Stated General Appearance: No Apparent Distress, WD/WN, Anxious, Chronically ill, Obese HEENT: PERRL/EOMI, Normal ENT Inspection Neck: Full Range of Motion, Normal Inspection, Non Tender Respiratory: Chest Non Tender, Lungs Clear, Normal Breath Sounds, No Accessory Muscle Use, No Respiratory Distress Cardiovascular: Regular Rate, Rhythm, No Edema, No Gallop, No JVD, No Murmur, Normal Peripheral Pulses Gastrointestinal: Normal Bowel Sounds, No Organomegaly, No Pulsatile Mass, Non Tender Extremity: Normal Capillary Refill, Normal Inspection, Normal Range of Motion, Non Tender, No Calf Tenderness, No Pedal Edema Neurologic/Psychiatric: Alert, Oriented x3, No Motor/Sensory Deficits, Normal Mood/Affect Skin: Normal Color, Warm/Dry Results Results/Procedures Labs Laboratory Tests 10/20/18 14:55 10/21/18 05:49 Patient resulted labs reviewed. Short Stay Diagnosis Discharge Diagnosis-Short Stay Admission Diagnosis Chest pain HTN Former smoker Father at 39yo of AMI GERD Final Discharge Diagnosis Chest pain HTN Former smoker Father at 39yo of AMI GERD Conclusion Plan Cardiology is appreciated ECHO today EST tomorrow Cardiac diet in meantime Diagnosis/Problems Diagnosis/Problems (1) Chest pain Status: Acute Qualifiers: Qualified Codes: R07.9 - Chest pain, unspecified (2) Former smoker Status: Chronic (3) GERD (gastroesophageal reflux disease) Status: Chronic Qualifiers: Qualified Codes: K21.9 - Gastro-esophageal reflux disease without esophagitis (4) Hypertension Status: Chronic Qualifiers: Qualified Codes: I10 - Essential (primary) hypertension (5) Family history of sudden cardiac in father Clinical Quality Measures AMI/AHF: ASA po Prior to arrival: No DVT/VTE Risk/Contraindication: Risk Factor Score Per Nursin RFS Level Per Nursing on Admit: 1=Low/No VTE PPX SARAH JARRETT DO Oct 21, 2018 11:06
[2018-10-21 12:00] VITALS: BP 124/65
--- NOTE | 2018-10-21 13:59 | Cardiology Progress Note ---
Cardiology SOAP Progress Note Subjective: Chest pain resolved. Objective: I&O/Vital Signs 10/21/18 10/21/18 10/21/18 10/21/18 04:10 07:08 07:30 08:00 Temp 97.8 97.0 Pulse 55 68 59 Resp 14 20 B/P (MAP) 114/74 (87) 121/72 (88) Pulse Ox 98 97 O2 Delivery Room Air Room Air Room Air 10/21/18 10/21/18 12:00 12:52 Temp 97.3 Pulse 64 60 Resp 20 B/P (MAP) 124/65 (84) Pulse Ox 96 O2 Delivery Room Air 10/21/18 00:00 Intake Total 200 ml Output Total 0 ml Balance 200 ml Weight (Pounds): 269 Weight (Ounces): 5.0 Weight (Calculated Kilograms): 122.436004 Constitutional: No appears stated age; AAO x 3; No apparent distress, No PERRL , No well-developed; well-nourished; No other Respiratory: No accessory muscle use, No respiratory distress, No chest tender , No chest expansion is symmetric; chest is bilaterally symmetric, lungs clear to percussion, lungs clear to auscultation; No crackles, No rhonchi, No rales, No stridor, No wheezing, No pleural rub, No other Cardiovascular: regular rate-rhythm; No irregularly irregular, No extra beats, No parasternal heave is noted, No JVD, No edema, No bradycardia, No tachycardia , No point of maximal impulse, No cardiac thrills are palpable; S1 and S2; No gallop/S3, No gallop/S4, No diastolic murmur; systolic murmur; No friction rub, No click, No other Gastrointestional: No tender; soft; No round, No distended, No pulsatile mass, No organomegaly, No guarding, No rebound, No tenderness, No hernia, No mass; audible bowel sounds; No abnormal bowel sounds, No abdominal bruits, No spleenomegaly, No other Extremities: No normal range of motion, No non-tender, No normal inspection, No pedal edema, No calf tenderness, No normal capillary refill, No pelvis stable , No calf tenderness, No inflammation, No pedal edema, No slow capillary refill , No swelling, No other, No abrasion, No clubbing, No cyanosis, No ecchymosis, No laceration, No no lower extremity edema bilateral, No significant edema, No tenderness, No wound Neurologic/Psychiatric: no motor/sensory deficits, alert, normal mood/affect, oriented x 3, grossly intact, power is 5/5 both on sides Skin: No normal color, No warm/dry, No cyanosis, No cool, No diaphoresis, No damp, No ecchymosis, No jaundice, No mottled, No pallor, No rash, No tattoos/ piercings, No ulcerations, No rash on exposed areas, No ulcerations on exposed areas, No other Results/Procedures: Labs Laboratory Tests 10/20/18 14:55: White Blood Count 9.1, Red Blood Count 5.62, Hemoglobin 15.3, Hematocrit 46, Mean Corpuscular Volume 81, Mean Corpuscular Hemoglobin 27, Mean Corpuscular Hemoglobin Concent 34, Red Cell Distribution Width 14.2, Platelet Count 183, Mean Platelet Volume 9.6, Neutrophils (%) (Auto) 44, Lymphocytes (%) (Auto) 45H , Monocytes (%) (Auto) 8, Eosinophils (%) (Auto) 2, Basophils (%) (Auto) 1, Neutrophils # (Auto) 4.0, Lymphocytes # (Auto) 4.0, Monocytes # (Auto) 0.7, Eosinophils # (Auto) 2.0H, Basophils # (Auto) 0.1, Prothrombin Time 13.6, INR Comment 1.0, Activated Partial Thromboplast Time 27, D-Dimer 0.25, Sodium Level 139, Potassium Level 3.8, Chloride Level 100, Carbon Dioxide Level 21, Anion Gap 18H, Blood Urea Nitrogen 7, Creatinine 1.11, Estimat Glomerular Filtration Rate > 60, BUN/Creatinine Ratio 6, Glucose Level 258H, Calcium Level 9.0, Corrected Calcium 8.7, Magnesium Level 1.9, Total Bilirubin 0.6, Aspartate Amino Transf (AST/SGOT) 24, Alanine Aminotransferase (ALT/SGPT) 46, Alkaline Phosphatase 115, Troponin T < 6, Pro-B-Type Natriuretic Peptide < 5.0, Total Protein 7.1, Albumin 4.4, Lipase 34 10/20/18 16:40: Urine Color YELLOW, Urine Clarity CLEAR, Urine pH 6.0, Urine Specific [place] 1.015L, Urine Protein NEGATIVE, Urine Glucose (UA) 3+H, Urine Ketones NEGATIVE, Urine Nitrite NEGATIVE, Urine Bilirubin NEGATIVE, Urine Urobilinogen 0.2, Urine Leukocyte Esterase NEGATIVE, Urine RBC (Auto) NEGATIVE, Urine RBC NONE, Urine WBC NONE, Urine Squamous Epithelial Cells RARE, Urine Crystals NONE, Urine Bacteria NONE, Urine Casts NONE, Urine Mucus NEGATIVE, Urine Culture Indicated NO, Urine Opiates Screen POSITIVEH, Urine Oxycodone Screen NEGATIVE, Urine Methadone Screen NEGATIVE, Urine Propoxyphene Screen NEGATIVE, Urine Barbiturates Screen NEGATIVE, Ur Tricyclic Antidepressants Screen NEGATIVE, Urine Phencyclidine Screen NEGATIVE, Urine Amphetamines Screen NEGATIVE, Urine Methamphetamines Screen NEGATIVE, Urine Benzodiazepines Screen NEGATIVE, Urine Cocaine Screen NEGATIVE, Urine Cannabinoids Screen NEGATIVE 10/20/18 21:01: Troponin I < 0.028 10/21/18 05:49: White Blood Count 9.1, Red Blood Count 5.47, Hemoglobin 14.8, Hematocrit 44, Mean Corpuscular Volume 80, Mean Corpuscular Hemoglobin 27, Mean Corpuscular Hemoglobin Concent 34, Red Cell Distribution Width 15.2H, Platelet Count 210, Mean Platelet Volume 9.8, Neutrophils (%) (Auto) 52, Lymphocytes (%) (Auto) 38, Monocytes (%) (Auto) 7, Eosinophils (%) (Auto) 2, Basophils (%) (Auto) 1, Neutrophils # (Auto) 4.8, Lymphocytes # (Auto) 3.5, Monocytes # (Auto) 0.6, Eosinophils # (Auto) 0.2, Basophils # (Auto) 0.1, Sodium Level 139, Potassium Level 4.0, Chloride Level 104, Carbon Dioxide Level 25, Anion Gap 10, Blood Urea Nitrogen 9, Creatinine 1.20, Estimat Glomerular Filtration Rate > 60, BUN/ Creatinine Ratio 8, Glucose Level 153H, Calcium Level 8.9, Corrected Calcium 8.8 , Total Bilirubin 0.7, Aspartate Amino Transf (AST/SGOT) 36H, Alanine Aminotransferase (ALT/SGPT) 60H, Alkaline Phosphatase 71, Total Protein 6.7, Albumin 4.1, Triglycerides Level 161H, Cholesterol Level 180, LDL Cholesterol Direct 124, VLDL Cholesterol 32, HDL Cholesterol 30L A/P: Assessment/Dx: Chest discomfort, non-specific, etiology undetermined Hyperglycemia, suggestive of DM II Hypertension Fam h/o early CAD (father suddenly at age 39) Obesity with BMI 35.5 H/o partial L nephrectomy for a renal cancer the details of which are not known to the patient and for which he follows at H/o colon resection of diverticulitis Plan: * Treat with ASA and beta-biju * Negative serial cardiac enzymes and EKG. Echocardiogram and nuclear stress test in the morning. Thank you for your consultation. Please call me if you have any questions. Mio Mix MD, FACP, FACC, FSCAI, FHRS, CCDS Interventional Cardiology Cardiac Electrophysiology Vascular Medicine and Endovascular Interventions Clinical Quality Measures AMI/AHF: ASA po Prior to arrival: Jose Lopze MD Oct 21, 2018 13:59
[2018-10-21 15:48] VITALS: BP 110/64
[2018-10-21] MEDS ORDERED: FLU QUADRIvalent (5+ YOA) 2018-2019 (AFLURIA) 0.5 ML IM ONE (16:00)
[2018-10-21 20:23] VITALS: BP 106/65
[2018-10-22 00:48] VITALS: BP 105/65
[2018-10-22 03:45] VITALS: BP 121/72
[2018-10-22] MEDS ORDERED: CATHETER FLUSH 10 ML SYR IV PRN (07:00)
[2018-10-22] MEDS: ASPIRIN 81 MG CHEW (CHILDREN'S ASA) PO SCH (09:00)
[2018-10-22] MEDS: meTOproloL SUCCINATE 50 MG (TOPROL XL) TAB PO SCH (09:00)
[2018-10-22] MEDS ORDERED: REGADENOSON 0.4 MG/5 ML SYR (LEXISCAN) IV ONE (09:12)
[2018-10-22 10:15] VITALS: BP 139/82
--- NOTE | 2018-10-22 10:33 | NUR ---
CALLED DR MUSTAFA. KEEP PATIENT NPO UNTIL HE REVIEWS HIS STRESS TEST RESULTS.
[2018-10-22 12:00] VITALS: BP 142/87
[2018-10-22 14:50] VITALS: BP 139/82
--- NOTE | 2018-10-22 15:04 | Cardiology Stress Test Report ---
Stress Test Report Type of NM Stress Test: Test Type: LEXISCAN 0.4MG/5ML Date of Procedure/Referring: Date of Procedure: Oct 22, 2018 PCP Sarah Jarrett DO Admitting Physician [place] Indications: Chest pain. Baseline Heart Rate: 63 Baseline Blood Pressure: Blood Pressure Systolic: 139 Blood Pressure Diastolic: 82 Baseline EKG: Baseline EKG: sinus rhythm Summary & Conclusion: Summary: The patient was brought to the stress lab after informed consent was taken. Stress test was performed according to the Lexiscan protocol. 0.4 mg of IV Lexiscan was given. Low-grade exercise was performed. Baseline EKG showed sinus rhythm at 63 BPM. Initial blood pressure was 147/93 mmHg. Maximum heart rate was 112 bpm and blood pressure 154/82 mmHg. Patient did not have any chest pain, arrhythmias or ST segment changes during the stress test. 10.26 mCi of Myoview were given for rest imaging and 29.5 mCi of Myoview given for stress imaging. Transient ischemic dilatation score 1.04, EF 58 percent. Normal wall motion. Normal myocardial perfusion imaging during rest and stress. Conclusion: Pharmacological stress test was negative for ischemia. Normal LV function with no wall motion abnormalities. Normal myocardial perfusion imaging during rest and stress. Jose MUSTAFA MD Oct 22, 2018 15:04
--- NOTE | 2018-10-22 15:04 | Cardiology Progress Note ---
Cardiology SOAP Progress Note Subjective: No further chest pain. Objective: I&O/Vital Signs 10/22/18 10/22/18 10/22/18 10/22/18 07:00 08:00 08:00 10:15 Temp 97.8 Pulse 70 58 Resp 20 B/P (MAP) 139/82 (101) Pulse Ox 98 O2 Delivery Room Air Room Air Room Air 10/22/18 10/22/18 10/22/18 12:00 13:06 14:50 Temp 97.9 Pulse 69 79 79 Resp 20 20 B/P (MAP) 142/87 (105) 139/82 Pulse Ox 99 98 O2 Delivery Room Air Room Air 10/22/18 00:00 Intake Total 1200 ml Output Total 1300 ml Balance -100 ml Weight (Pounds): 269 Weight (Ounces): 5.0 Weight (Calculated Kilograms): 122.427658 Constitutional: No appears stated age; AAO x 3; No apparent distress, No PERRL , No well-developed; well-nourished; No other Respiratory: No accessory muscle use, No respiratory distress, No chest tender , No chest expansion is symmetric; chest is bilaterally symmetric, lungs clear to percussion, lungs clear to auscultation; No crackles, No rhonchi, No rales, No stridor, No wheezing, No pleural rub, No other Cardiovascular: regular rate-rhythm; No irregularly irregular, No extra beats, No parasternal heave is noted, No JVD, No edema, No bradycardia, No tachycardia , No point of maximal impulse, No cardiac thrills are palpable; S1 and S2; No gallop/S3, No gallop/S4, No diastolic murmur; systolic murmur; No friction rub, No click, No other Gastrointestional: No tender; soft; No round, No distended, No pulsatile mass, No organomegaly, No guarding, No rebound, No tenderness, No hernia, No mass; audible bowel sounds; No abnormal bowel sounds, No abdominal bruits, No spleenomegaly, No other Extremities: No normal range of motion, No non-tender, No normal inspection, No pedal edema, No calf tenderness, No normal capillary refill, No pelvis stable , No calf tenderness, No inflammation, No pedal edema, No slow capillary refill , No swelling, No other, No abrasion, No clubbing, No cyanosis, No ecchymosis, No laceration, No no lower extremity edema bilateral, No significant edema, No tenderness, No wound Neurologic/Psychiatric: no motor/sensory deficits, alert, normal mood/affect, oriented x 3, grossly intact, power is 5/5 both on sides Skin: No normal color, No warm/dry, No cyanosis, No cool, No diaphoresis, No damp, No ecchymosis, No jaundice, No mottled, No pallor, No rash, No tattoos/ piercings, No ulcerations, No rash on exposed areas, No ulcerations on exposed areas, No other Results/Procedures: Labs Laboratory Tests 10/22/18 12:09: Glucometer 156H A/P: Assessment/Dx: Chest discomfort, non-specific, etiology undetermined Hyperglycemia, suggestive of DM II Hypertension Fam h/o early CAD (father suddenly at age 39) Obesity with BMI 35.5 H/o partial L nephrectomy for a renal cancer the details of which are not known to the patient and for which he follows at H/o colon resection of diverticulitis Plan: * Treat with ASA and beta-ibju * Negative serial cardiac enzymes and EKG. * Nuclear stress test is negative for any ischemia or infarct. * Patient can be discharged to follow-up as an outpatient. Thank you for your consultation. Please call me if you have any questions. Mio Mix MD, FACP, FACC, FSCAI, FHRS, CCDS Interventional Cardiology Cardiac Electrophysiology Vascular Medicine and Endovascular Interventions Clinical Quality Measures AMI/AHF: ASA po Prior to arrival: Jose Lopez MD Oct 22, 2018 15:04
== END 2018-10-22 14:50 | disposition home or self-care (01) ==
LOC: EDUNIT# 14:40 → ER FS 14:42 → 4TH 16:29
PROVIDERS: ADMIT Internal Medicine; ATTEND Internal Medicine
DX: R07.9 Chest pain, unspecified (principal); Z88.2 Allergy status to sulfonamides; Z87.891 Personal history of nicotine dependence; I10 Essential (primary) hypertension; K59.09 Other constipation; K58.9 Irritable bowel syndrome, unspecified; M19.91 Primary osteoarthritis, unspecified site; F41.9 Anxiety disorder, unspecified; K21.9 Gastro-esophageal reflux disease without esophagitis; Z87.440 Personal history of urinary (tract) infections; Z82.49 Family history of ischemic heart disease and other diseases of the circulatory system; R73.9 Hyperglycemia, unspecified; E66.9 Obesity, unspecified; Z87.19 Personal history of other diseases of the digestive system; Z68.35 Body mass index [BMI] 35.0-35.9, adult; Z90.5 Acquired absence of kidney
CPT/HCPCS: 36415; 71045; 78452; 80053; 80061; 80306; 81000; 82962; 83036; 83690; 83735; 83880; 84484; 85025; 85379; 85610; 85730; 93005; 93017; 93041; 93306

== ENCOUNTER 2019-05-02 18:16 | Emergency (ER) | payer BC ==
[~2019-05-02] VITALS: Ht 185.4 cm; Wt 113.6 kg
[~2019-05-02 18:16] MED LIST changes: +AMLO10TA7 PO; +HYDR-3812; +PANT40TA3 PO
[2019-05-02] MEDS ORDERED: LACTATED RINGERS 1,000 ML IV ONE (18:42)
[2019-05-02] MEDS ORDERED: ONDANSETRON 4 MG/2 ML (SDV) Z0FRAN IVP ONE (18:45)
[2019-05-02 19:17] LABS: BASOPHILS # (AUTO) 0.1 10^3/uL (0.0-0.1); BASOPHILS % (AUTO) 1 % (0-10); EOSINOPHILS # (AUTO) 0.1 10^3/uL (0.0-0.3); EOSINOPHILS % (AUTO) 1 % (0-10); HEMATOCRIT 43 % (40-54); HEMOGLOBIN 14.6 G/DL (13.3-17.7); LYMPHOCYTES # (AUTO) 3.1 X 10^3 (1.0-4.0); LYMPHOCYTES % (AUTO) 40 % (12-44); MEAN CORPUSCULAR HEMOGLOBIN 27 PG (25-34); MEAN CORPUSCULAR HGB CONC 34 G/DL (32-36); MEAN CORPUSCULAR VOLUME 80 FL (80-99); MEAN PLATELET VOLUME 9.6 FL (7.4-10.4); MONOCYTES # (AUTO) 0.8 X 10^3 (0.0-1.0); MONOCYTES % (AUTO) 10 % (0-12); NEUTROPHILS # (AUTO) 3.9 X 10^3 (1.8-7.8); NEUTROPHILS % (AUTO) 49 % (42-75); PLATELET COUNT 221 10^3/uL (130-400); WHITE BLOOD COUNT 7.9 10^3/uL (4.3-11.0)
[2019-05-02 19:43] LABS: BUN/CREATININE RATIO 7; CARBON DIOXIDE 24 MMOL/L (21-32); CHLORIDE 108 MMOL/L (98-107); CREATININE SERUM 1.08 MG/DL (0.60-1.30); POTASSIUM 3.8 MMOL/L (3.6-5.0); SODIUM 143 MMOL/L (135-145)
[2019-05-02 19:44] LABS: ALANINE AMINOTRANSFERASE 54 U/L (0-55); ALBUMIN 4.1 GM/DL (3.2-4.5); ALKALINE PHOSPHATASE 62 U/L (40-136); AMYLASE 69 U/L (25-125); BILIRUBIN,TOTAL 0.6 MG/DL (0.1-1.0); CALCIUM 8.7 MG/DL (8.5-10.1); GFR ESTIMATED > 60; GLUCOSE 106 MG/DL (70-105); LIPASE 24 U/L (8-78); MAGNESIUM 1.8 MG/DL (1.6-2.4); TOTAL PROTEIN 6.4 GM/DL (6.4-8.2)
[2019-05-02 20:01] LABS: BILIRUBIN,URINE NEGATIVE (NEGATIVE); CLARITY,URINE CLEAR; COLOR,URINE YELLOW; GLUCOSE, URINE (UA) NEGATIVE (NEGATIVE); KETONES,URINE 2+ (NEGATIVE); LEUKOCYTE ESTERASE ,URINE NEGATIVE (NEGATIVE); NITRITE,URINE NEGATIVE (NEGATIVE); PH,URINE 6.5 (5-9); PROTEIN,URINE NEGATIVE (NEGATIVE); UROBILINOGEN,URINE NORMAL (NORMAL)
[2019-05-02 20:37] LABS: RBC,URINE RARE /HPF
[2019-05-02 20:38] LABS: BACTERIA,URINE NEGATIVE /HPF
[2019-05-02 20:54] LABS: AMPHETAMINE SCREEN, URINE NEGATIVE (NEGATIVE); BARBITURATE SCREEN URINE NEGATIVE (NEGATIVE); BENZODIAZEPINES SCREEN URINE NEGATIVE (NEGATIVE); CANNABINOID SCREEN, URINE POSITIVE (NEGATIVE); COCAINE SCREEN URINE NEGATIVE (NEGATIVE); METHADONE STAT NEGATIVE (NEGATIVE); METHAMPHETAMINE SCREEN URINE S NEGATIVE (NEGATIVE); OPIATE SCREEN URINE NEGATIVE (NEGATIVE); OXYCODONE STAT NEGATIVE (NEGATIVE); PROPOXYPHENE STAT NEGATIVE (NEGATIVE); TRICYCLIC ANTIDEPRESSANTS SCRE NEGATIVE (NEGATIVE)
[2019-05-02] MEDS ORDERED: fentaNYL INJECTION 100 MCG/2 ML AMP IVP ONE (21:15)
--- NOTE | 2019-05-02 21:20 | Diagnostic Imaging Report ---
INDICATION: Abdominal pain. EXAMINATION: Supine and upright views of the abdomen were obtained with single view of the chest. FINDINGS: The lungs are clear, bilaterally. Overall bowel gas pattern is unremarkable. Surgical suture is seen in the right midabdomen at the level of the ascending colon. Is no evidence of bowel obstruction. Additional surgical suture seen below the pelvis may involve the rectum. Is no pathologic abdominal calcification. IMPRESSION: No acute abnormality is identified. Dictated by: Dictated on workstation # [id number]
--- NOTE | 2019-05-02 21:38 | Diagnostic Imaging Report ---
PROCEDURE: CT urinary tract, rule out kidney stone. TECHNIQUE: Multiple contiguous axial images were obtained through the abdomen and pelvis without the use of intravenous contrast. Auto Exposure Controls were utilized during the CT exam to meet ALARA standards for radiation dose reduction. INDICATION: Right abdominal pain No focal hepatic or splenic lesion is seen on the noncontrasted study. Gallbladder is nonvisualized. There is no biliary ductal dilatation. No pancreatic, adrenal gland or renal lesion is identified. There has been interval resection of the exophytic mass along the lateral aspect of the left kidney. There is no evidence of free fluid. No pathologic adenopathy is identified. There is no hydronephrosis or hydroureter. Surgical suture is seen in the right midabdomen. There are adherent small bowel loops along the anterior abdominal wall which could be related to adhesion, however, there is no evidence of bowel obstruction. There is also surgical suture at the sigmoid colon. Dystrophic calcification seen within the left retroperitoneum. IMPRESSION: No acute abnormality identified. There are surgical findings as described with small bowel loops adherent to the anterior abdominal wall. This could be related to adhesion, however, there is no evidence of bowel obstruction or other acute abnormality. Dictated by: Dictated on workstation # [id number]
[2019-05-02] MEDS ORDERED: RX-HYOSCYAMINE 0.125 MG SL (LEVSIN) PPK#6 SL STA (21:51)
[2019-05-02] MEDS ORDERED: RX-TRAMADOL 50 MG (ULTRAM) TAB PPK#4 PO STA (21:51)
[2019-05-02] MEDS ORDERED: RX-ONDANSETRON 4 MG ODT (ZOFRAN) PPK #4 PO STA (21:51)
[2019-05-02] MEDS ORDERED: RX-DICYCLOMINE 10 MG (BENTYL) CAP PPK#4 PO STA (21:51)
--- NOTE | 2019-05-02 21:59 | ED GI ---
General Chief Complaint: Abdominal/GI Problems Stated Complaint: RT SIDE ABD PAIN Nursing Triage Note: PT AMB TO RM 8 WITH COMPLAINT OF RUQ ABD PAIN. STATES PAIN STARTED LAST NIGHT AFTER DINNER, BUT HAS HAD DIARRHEA FOR A WEEK. Sepsis Screen: No Definite Risk Source of Information: Patient Allergies and Home Medications Allergies Coded Allergies: sulfamethoxazole (Verified Allergy, Intermediate, PATIENT GOT DEHYDRATED, 07/09/18) trimethoprim (Verified Allergy, Intermediate, PATIENT GOT DEHYDRATED, 07/09/18) coconut oil (Verified Allergy, Unknown, 07/09/18) Home Medications Amlodipine Besylate 10 Mg Tablet, 10 MG PO DAILY, (Reported) Pantoprazole Sodium 40 Mg Tablet.dr, 40 MG PO DAILY, (Reported) Past Rwtjsap-Zjjnge-Xouoyz Hx Patient Social History Alcohol Use: Denies Use Number of Drinks Today: AA Alcohol Beverage of Choice: Beer Recreational Drug Use: No Drug of Choice: THC Smoking Status: Former Smoker Type Used: Cigarettes Former Smoker, Quit: Jul 11, 2013 Recent Foreign Travel: No Contact w/Someone Who Travel: No Recent Infectious Disease Expo: No Recent Hopitalizations: No Physical Abuse: No Sexual Abuse: No Mistreated: No Fear: No Immunizations Up To Date Tetanus Booster (TDap): Less than 5yrs Seasonal Allergies Seasonal Allergies: Yes Past Medical History Surgeries: Yes (COLON RESECTION W/ COLOSTOMY PLACED AND REVERSAL) Gallbladder Respiratory: No Cardiac: Yes Hypertension Neurological: Yes Meningitis Reproductive Disorders: No Sexually Transmitted Disease: No HIV/AIDS: No Genitourinary: No UTI-Chronic Gastrointestinal: Yes (HX COLON RESECTION) Gastroesophageal Reflux, Chronic Constipation, Chronic Diarrhea, Hiatal Hernia Musculoskeletal: Yes (ARTHRITIS) Arthritis, Chronic Back Pain Endocrine: No HEENT: No Loss of Vision: Denies Hearing Impairment: Denies Cancer: Yes (REMOVED CANCER OFF KIDNEY) Kidney Psychosocial: Yes Anxiety Integumentary: No Blood Disorders: No Adverse Reaction/Blood Tranf: No (N/A) Family Medical History Abdominal aortic aneurysm 19 FATHER Alcoholism 19 MOTHER Cancer 19 MOTHER Cataract 19 FATHER 19 MOTHER Chest pain 19 FATHER 19 MOTHER Congestive heart failure 19 FATHER 19 MOTHER Family history: Arthritis 19 FATHER 19 MOTHER Family history: Cardiovascular disease Family history: Diabetes mellitus 19 MOTHER Family history: Hypertension 19 FATHER 19 MOTHER Heart disease 19 FATHER 19 MOTHER History of drug abuse 19 MOTHER Hypercholesterolemia 19 FATHER Kidney disease Myocardial infarction 19 FATHER Sudden cardiac in father No Family History of: [place]'s disease Aphasia Cancer of colon Congenital heart disease Cystic fibrosis Dementia Dysphagia Family history: Allergy Family history: Alzheimer's disease Family history: Asthma Family history: Breast disease Family history: Coronary thrombosis Family history: Gastrointestinal disease Family history: Glaucoma Family history: Osteoporosis Family history: Thyroid disorder Headache Hearing loss Hereditary disease History of - anemia History of - disorder History of - respiratory disease Human immunodeficiency virus (HIV) seropositivity Infertile Malignant neoplasm of lung Parkinson's disease Prostate cancer Psychotic disorder Seizure disorder Stroke Tuberculosis Visual impairment No Pertinent Family Hx Physical Exam Vital Signs Vital Signs - First Documented 05/02/19 18:20 Temp 36.8 Pulse 70 Resp 16 B/P (MAP) 144/92 (109) Pulse Ox 99 O2 Delivery Room Air Capillary Refill : Less Than 3 Seconds Height/Weight/BMI Height: 6'1.00" Weight: 269lbs. 5.0oz. 122.998336la; 33.00 BMI Method:Stated Progress/Results/Core Measures Results/Orders Lab Results Laboratory Tests Test 05/02/19 19:10 05/02/19 19:53 Range/Units White Blood Count 7.9 4.3-11.0 10^3/uL Red Blood Count 5.43 4.35-5.85 10^6/uL Hemoglobin 14.6 13.3-17.7 G/DL Hematocrit 43 40-54 % Mean Corpuscular Volume 80 80-99 FL Mean Corpuscular Hemoglobin 27 25-34 PG Mean Corpuscular Hemoglobin Concent 34 32-36 G/DL Red Cell Distribution Width 15.0 H 10.0-14.5 % Platelet Count 221 130-400 10^3/uL Mean Platelet Volume 9.6 7.4-10.4 FL Neutrophils (%) (Auto) 49 42-75 % Lymphocytes (%) (Auto) 40 12-44 % Monocytes (%) (Auto) 10 0-12 % Eosinophils (%) (Auto) 1 0-10 % Basophils (%) (Auto) 1 0-10 % Neutrophils # (Auto) 3.9 1.8-7.8 X 10^3 Lymphocytes # (Auto) 3.1 1.0-4.0 X 10^3 Monocytes # (Auto) 0.8 0.0-1.0 X 10^3 Eosinophils # (Auto) 0.1 0.0-0.3 10^3/uL Basophils # (Auto) 0.1 0.0-0.1 10^3/uL Sodium Level 143 135-145 MMOL/L Potassium Level 3.8 3.6-5.0 MMOL/L Chloride Level 108 H 98-107 MMOL/L Carbon Dioxide Level 24 21-32 MMOL/L Anion Gap 11 5-14 MMOL/L Blood Urea Nitrogen 8 7-18 MG/DL Creatinine 1.08 0.60-1.30 MG/DL Estimat Glomerular Filtration Rate > 60 BUN/Creatinine Ratio 7 Glucose Level 106 H 70-105 MG/DL Calcium Level 8.7 8.5-10.1 MG/DL Corrected Calcium 8.6 8.5-10.1 MG/DL Magnesium Level 1.8 1.6-2.4 MG/DL Total Bilirubin 0.6 0.1-1.0 MG/DL Aspartate Amino Transf (AST/SGOT) 32 5-34 U/L Alanine Aminotransferase (ALT/SGPT) 54 0-55 U/L Alkaline Phosphatase 62 40-136 U/L Total Protein 6.4 6.4-8.2 GM/DL Albumin 4.1 3.2-4.5 GM/DL Amylase Level 69 25-125 U/L Lipase 24 8-78 U/L Urine Color YELLOW Urine Clarity CLEAR Urine pH 6.5 5-9 Urine Specific [place] 1.015 L 1.016-1.022 Urine Protein NEGATIVE NEGATIVE Urine Glucose (UA) NEGATIVE NEGATIVE Urine Ketones 2+ H NEGATIVE Urine Nitrite NEGATIVE NEGATIVE Urine Bilirubin NEGATIVE NEGATIVE Urine Urobilinogen NORMAL NORMAL MG/DL Urine Leukocyte Esterase NEGATIVE NEGATIVE Urine RBC (Auto) 2+ H NEGATIVE Urine RBC RARE /HPF Urine WBC NONE /HPF Urine Crystals NONE /LPF Urine Bacteria NEGATIVE /HPF Urine Casts NONE /LPF Urine Mucus NEGATIVE /LPF Urine Culture Indicated NO Urine Opiates Screen NEGATIVE NEGATIVE Urine Oxycodone Screen NEGATIVE NEGATIVE Urine Methadone Screen NEGATIVE NEGATIVE Urine Propoxyphene Screen NEGATIVE NEGATIVE Urine Barbiturates Screen NEGATIVE NEGATIVE Ur Tricyclic Antidepressants Screen NEGATIVE NEGATIVE Urine Phencyclidine Screen NEGATIVE NEGATIVE Urine Amphetamines Screen NEGATIVE NEGATIVE Urine Methamphetamines Screen NEGATIVE NEGATIVE Urine Benzodiazepines Screen NEGATIVE NEGATIVE Urine Cocaine Screen NEGATIVE NEGATIVE Urine Cannabinoids Screen POSITIVE H NEGATIVE My Orders Orders - RED MILLIGAN DO Ed Iv/Invasive Line Start (05/02/19 18:42) Amylase (05/02/19 18:42) Cbc With Automated Diff (05/02/19 18:42) Comprehensive Metabolic Panel (05/02/19 18:42) Drug Screen Stat (Urine) (05/02/19 18:42) Lipase (05/02/19 18:42) Magnesium (05/02/19 18:42) Ua Culture If Indicated (05/02/19 18:42) Ed Iv/Invasive Line Start (05/02/19 18:42) Lactated Ringers (Lr 1000 Ml Iv Solution (05/02/19 18:42) Ondansetron Injection (Zofran Injectio (05/02/19 18:45) Ct Abd/Pelvis Wo(Kidney Stone) (05/02/19 20:54) Acute Abd Series (05/02/19 20:54) Fentanyl Injection (Sublimaze Injection (05/02/19 21:15) Rx-Dicyclomine Capsule (Rx-Bentyl Capsul (05/02/19 21:51) Rx-Hyoscyamine Tab (Rx-Levsin Sl) (05/02/19 21:51) Rx-Ondansetron Po (Rx-Zofran Po) (05/02/19 21:51) Rx-Tramadol Hcl (Rx-Ultram) (05/02/19 21:51) Medications Given in ED Current Medications Medications Dose Ordered Sig/Narciso Route Start Time Stop Time Status Last Admin Dose Admin Fentanyl Citrate 50 mcg ONCE ONCE IVP 05/02/19 21:15 05/02/19 21:16 DC 05/02/19 21:24 50 MCG Lactated Ringer's 1,000 ml @ 0 mls/hr Q0M ONCE IV 05/02/19 18:42 05/02/19 18:44 DC 05/02/19 18:52 1,000 MLS/HR Ondansetron HCl 4 mg ONCE ONCE IVP 05/02/19 18:45 05/02/19 18:46 DC 05/02/19 18:52 4 MG Vital Signs/I&O 05/02/19 18:20 Temp 36.8 Pulse 70 Resp 16 B/P (MAP) 144/92 (109) Pulse Ox 99 O2 Delivery Room Air Blood Pressure Mean: 109 Departure Impression Primary Impression: RUQ abdominal pain Additional Impressions: POSSIBLE ADHESIONS Enteritis Disposition: 01 HOME, SELF-CARE Condition: Improved Departure-Patient Inst. Referrals: [facility] (PCP/Family) Primary Care Physician OTONIEL TAYLOR DO Patient Instructions: Acute Abdomen (Belly Pain), Adult (DC), Viral Gastroenteritis, Adult (DC) Add. Discharge Instructions: CLEAR LIQUIDS --WATER, BROTH, JELLO, GATORADE TOMORROW IF YOU ARE BETTER, ADD BRATS DIET TO CLEAR LIQUIDS--BANANAS, RICE, APPLESAUCE, TOAST, SALTINES FOLLOW UP WITH DR. TAYLOR NEXT WEEK FOR FURTHER CARE All discharge instructions reviewed with patient and/or family. Voiced understanding. Scripts Tramadol HCl (Ultram) 50 Mg Tablet 50 MG PO Q4H PRN for PAIN-MODERATE for 3 Days, TAB Prov: RED MILLIGAN DO 05/02/19 Hyoscyamine Sulfate (Levsin-Sl) 0.125 Mg Tab.subl 1-2 TAB SL Q4H for Abdominal Pain, #15 TAB Prov: RED MILLIGAN DO 05/02/19 Lactobacillus Acidophilus (Acidophilus) 1 Each Capsule 2 EACH PO QID, #80 CAP Prov: RED MILLIGAN DO 05/02/19 Dicyclomine HCl (Dicyclomine HCl) 20 Mg Tablet 20 MG PO Q6H for Abdominal Pain, #20 TAB Prov: RED MILLIGAN DO 05/02/19 RED MILLIGAN DO May 02, 2019 21:59
[2019-05-02] MEDS ORDERED: TRAM-42 PO (22:01)
[2019-05-02] MEDS ORDERED: LACT1CAP8 PO (22:01)
[2019-05-02] MEDS ORDERED: HYOS0.1283 SL (22:01)
[2019-05-02] MEDS ORDERED: DICY20TA10 PO (22:01)
[2019-05-02 22:10] VITALS: BP 124/82
== END 2019-05-02 22:10 | disposition home or self-care (01) ==
LOC: EDUNIT# 18:16 → ER 18:17
DX: K52.9 Noninfective gastroenteritis and colitis, unspecified (principal); I10 Essential (primary) hypertension; K21.9 Gastro-esophageal reflux disease without esophagitis; F41.9 Anxiety disorder, unspecified; Z85.528 Personal history of other malignant neoplasm of kidney; Z88.1 Allergy status to other antibiotic agents; Z88.2 Allergy status to sulfonamides; Z87.891 Personal history of nicotine dependence; Z90.49 Acquired absence of other specified parts of digestive tract; Z87.440 Personal history of urinary (tract) infections; Z82.49 Family history of ischemic heart disease and other diseases of the circulatory system
CPT/HCPCS: 36415; 74022; 74176; 80053; 80306; 81000; 82150; 83690; 83735; 85025

== ENCOUNTER 2020-05-22 20:00 | Emergency (ER) | payer BC ==
[~2020-05-22] VITALS: Ht 185.5 cm; Wt 111.1 kg
[~2020-05-22 20:00] MED LIST changes: +ACHD5005; +DICY20TA10 PO; -HYDR-3812; +HYOS0.1283 SL; +LACT1CAP8 PO; +ONDA-105 PO; -ONDA4TAB10 PO; -PANT40TA3 PO; +PANT40TA52 PO; +TRAM-42 PO
[2020-05-22 20:49] LABS: BASOPHILS # (AUTO) 0.1 10^3/uL (0.0-0.1); BASOPHILS % (AUTO) 1 % (0-10); EOSINOPHILS # (AUTO) 0.2 10^3/uL (0.0-0.3); EOSINOPHILS % (AUTO) 2 % (0-10); HEMATOCRIT 50 % (40-54); HEMOGLOBIN 16.3 g/dL (13.3-17.7); LYMPHOCYTES # (AUTO) 3.2 10^3/uL (1.0-4.0); LYMPHOCYTES % (AUTO) 35 % (12-44); MEAN CORPUSCULAR HEMOGLOBIN 27 pg (25-34); MEAN CORPUSCULAR HGB CONC 33 g/dL (32-36); MEAN CORPUSCULAR VOLUME 81 fL (80-99); MEAN PLATELET VOLUME 10.1 fL (9.0-12.2); MONOCYTES # (AUTO) 0.8 10^3/uL (0.0-1.0); MONOCYTES % (AUTO) 9 % (0-12); NEUTROPHILS # (AUTO) 4.9 10^3/uL (1.8-7.8); NEUTROPHILS % (AUTO) 53 % (42-75); PLATELET COUNT 181 10^3/uL (130-400); WHITE BLOOD COUNT 9.2 10^3/uL (4.3-11.0)
[2020-05-22 20:52] LABS: BILIRUBIN,URINE NEGATIVE (NEGATIVE); CLARITY,URINE CLEAR; COLOR,URINE YELLOW; GLUCOSE, URINE (UA) 3+ (NEGATIVE); KETONES,URINE NEGATIVE (NEGATIVE); LEUKOCYTE ESTERASE ,URINE NEGATIVE (NEGATIVE); NITRITE,URINE NEGATIVE (NEGATIVE); PROTEIN,URINE NEGATIVE (NEGATIVE)
[2020-05-22 20:57] LABS: BACTERIA,URINE TRACE /HPF; SQUAMOUS EPITHELIAL CELL,UR RARE /HPF
[2020-05-22 21:00] LABS: ALBUMIN 4.3 GM/DL (3.2-4.5); CHLORIDE 106 MMOL/L (98-107); POTASSIUM 3.9 MMOL/L (3.6-5.0)
--- NOTE | 2020-05-22 21:00 | NUR ---
Report recieved from Corby LOPEZ.
[2020-05-22 21:01] LABS: SODIUM 141 MMOL/L (135-145)
[2020-05-22 21:03] LABS: GLUCOSE 154 MG/DL (70-105)
[2020-05-22 21:04] LABS: CARBON DIOXIDE 23 MMOL/L (21-32)
[2020-05-22 21:05] LABS: BILIRUBIN,TOTAL 0.6 MG/DL (0.1-1.0)
[2020-05-22 21:07] LABS: ALKALINE PHOSPHATASE 63 U/L (40-136); CREATININE SERUM 1.04 MG/DL (0.60-1.30); GFR ESTIMATED > 60
[2020-05-22 21:08] LABS: BUN/CREATININE RATIO 12
[2020-05-22 21:10] LABS: ALANINE AMINOTRANSFERASE 26 U/L (0-55); MAGNESIUM 1.8 MG/DL (1.6-2.4)
[2020-05-22] MEDS ORDERED: ONDA4TAB11 SL (21:52)
--- NOTE | 2020-05-22 21:52 | ED Abdominal Pain ---
General Chief Complaint: Abdominal/GI Problems Stated Complaint: ELEVATED BS/DIARRHEA/NAUSEA/R SIDE PAIN Nursing Triage Note: PT AMB TO RM5 AFTER BEING SEEN BY [facility]. URINE SUGAR WAS OVER 1000 AND WAS TOLD TO COME TO ER. HAS BEEN HAVING ABD PAIN, DIARHEA, AND COUGH. Sepsis Screen: No Definite Risk Source of Information: Patient Exam Limitations: No Limitations History of Present Illness Date Seen by Provider: May 22, 2020 Time Seen by Provider: 20:03 Initial Comments This 39-year-old gentleman presents to emergency room with right sided abdominal paibn and diarrhea for the past few days. He denies fever. He has had a subtle cough which he thinks is from inconsistent Flonase use and postnasal drainage. He has history of a left renal cell carcinoma status post resection without chemotherapy or radiation. He has annual oncology checkups and CT scans, the last one being in January. He also has history of a bowel perforation from diverticulitis resulting in bowel resection, colostomy, and reversal. He is status post cholecystectomy. He has a UA performed today at an outpatient clinic and he had a large amount of sugar in the urine. He reports his blood sugars have been in the 150 range. Allergies and Home Medications Allergies Coded Allergies: sulfamethoxazole (Verified Allergy, Intermediate, PATIENT GOT DEHYDRATED, 07/09/18) trimethoprim (Verified Allergy, Intermediate, PATIENT GOT DEHYDRATED, 07/09/18) coconut oil (Verified Allergy, Unknown, 07/09/18) Home Medications Amlodipine Besylate 10 Mg Tablet, 10 MG PO DAILY, (Reported) Dicyclomine HCl 20 Mg Tablet, 20 MG PO Q6H Prescribed by: RED MILLIGAN on 05/02/192200 Hyoscyamine Sulfate 0.125 Mg Tab.subl, 1-2 TAB SL Q4H Prescribed by: RED MILLIGAN on 05/02/192200 Lactobacillus Acidophilus 1 Each Capsule, 2 EACH PO QID Prescribed by: RED MILLIGAN on 05/02/192200 Ondansetron 4 Mg Tab.rapdis, 4 MG SL Q4H PRN for NAUSEA/VOMITING Prescribed by: DIONY HENRY on 05/22/202151 Pantoprazole Sodium 40 Mg Tablet.dr, 40 MG PO DAILY, (Reported) Tramadol HCl 50 Mg Tablet, 50 MG PO Q4H PRN for PAIN-MODERATE Prescribed by: RED MILLIGAN on 05/02/19 2201 Patient Home Medication List Home Medication List Reviewed: Yes Review of Systems Review of Systems Constitutional: no symptoms reported EENTM: No Symptoms Reported Respiratory: See HPI Cardiovascular: No Symptoms Reported Gastrointestinal: See HPI Genitourinary: See HPI Musculoskeletal: no symptoms reported Skin: no symptoms reported Psychiatric/Neurological: No Symptoms Reported Endocrine: No Symptoms Reported Past Zxtzayd-Dfcpwb-Tglvyp Hx Past Med/Social Hx: Reviewed Nursing Past Med/Soc Hx Patient Social History Alcohol Use: Rarely Uses Number of Drinks Today: AA Alcohol Beverage of Choice: Beer Recreational Drug Use: Yes Drug of Choice: THC Smoking Status: Former Smoker Type Used: Cigarettes Former Smoker, Quit: Jul 11, 2013 Recent Foreign Travel: No Contact w/Someone Who Travel: No Recent Infectious Disease Expo: No Recent Hopitalizations: No Immunizations Up To Date Tetanus Booster (TDap): Less than 5yrs Seasonal Allergies Seasonal Allergies: Yes Past Medical History Surgeries: Yes Abdominal, Bowel Surgery (bowel resection with colostomy and reversal), Gallbladder, Renal (resection of renal cell carcinoma) Respiratory: No Cardiac: Yes Hypertension Neurological: Yes Meningitis Reproductive Disorders: No Sexually Transmitted Disease: No HIV/AIDS: No Genitourinary: Yes (LEFT RENAL CANCER REMOVED 2016--NO CHEMO OR RADIATION) UTI-Chronic Gastrointestinal: Yes Gastroesophageal Reflux, Chronic Constipation, Diverticulosis, Chronic Diarrhea, Hiatal Hernia, Gall Bladder Disease Musculoskeletal: Yes (ARTHRITIS) Arthritis, Chronic Back Pain Endocrine: Yes Diabetes, Non-Insulin dep HEENT: No Loss of Vision: Denies Hearing Impairment: Denies Cancer: Yes Kidney Did You Recieve Any Treatments: Yes What Type of Treatment Did You: Surgical Intervention Psychosocial: Yes Anxiety Integumentary: No Blood Disorders: No Adverse Reaction/Blood Tranf: No (N/A) Family Medical History Abdominal aortic aneurysm 19 FATHER Alcoholism 19 MOTHER Cancer 19 MOTHER Cataract 19 FATHER 19 MOTHER Chest pain 19 FATHER 19 MOTHER Congestive heart failure 19 FATHER 19 MOTHER Family history: Arthritis 19 FATHER 19 MOTHER Family history: Cardiovascular disease Family history: Diabetes mellitus 19 MOTHER Family history: Hypertension 19 FATHER 19 MOTHER Heart disease 19 FATHER 19 MOTHER History of drug abuse 19 MOTHER Hypercholesterolemia 19 FATHER Kidney disease Myocardial infarction 19 FATHER Sudden cardiac in father No Family History of: [place]'s disease Aphasia Cancer of colon Congenital heart disease Cystic fibrosis Dementia Dysphagia Family history: Allergy Family history: Alzheimer's disease Family history: Asthma Family history: Breast disease Family history: Coronary thrombosis Family history: Gastrointestinal disease Family history: Glaucoma Family history: Osteoporosis Family history: Thyroid disorder Headache Hearing loss Hereditary disease History of - anemia History of - disorder History of - respiratory disease Human immunodeficiency virus (HIV) seropositivity Infertile Malignant neoplasm of lung Parkinson's disease Prostate cancer Psychotic disorder Seizure disorder Stroke Tuberculosis Visual impairment No Pertinent Family Hx Physical Exam Vital Signs Vital Signs - First Documented 05/22/20 20:19 Temp 36.2 Pulse 62 Resp 20 B/P (MAP) 161/104 (123) Pulse Ox 98 O2 Delivery Room Air Capillary Refill : Less Than 3 Seconds Height/Weight/BMI Height: 6'1.00" Weight: 269lbs. 5.0oz. 122.432016su; 32.00 BMI Method:Stated General Appearance: WD/WN, no apparent distress, obese HEENT: PERRL/EOMI, normal ENT inspection, pharynx normal Neck: normal inspection Respiratory: lungs clear, normal breath sounds, no respiratory distress, no accessory muscle use Cardiovascular: regular rate, rhythm, no edema, no murmur Gastrointestinal: normal bowel sounds, soft, tenderness (RUQ) Extremities: normal inspection, no pedal edema Neurologic/Psychiatric: director of pharmacy II-XII nml as tested, no motor/sensory deficits, alert, normal mood/affect, oriented x 3 Skin: normal color, warm/dry Progress/Results/Core Measures Results/Orders Lab Results Laboratory Tests Test 05/22/20 20:31 05/22/20 20:43 05/22/20 20:46 Range/Units Glucometer 157 H 70-110 MG/DL White Blood Count 9.2 4.3-11.0 10^3/uL Red Blood Count 6.14 H 4.30-5.52 10^6/uL Hemoglobin 16.3 13.3-17.7 g/dL Hematocrit 50 40-54 % Mean Corpuscular Volume 81 80-99 fL Mean Corpuscular Hemoglobin 27 25-34 pg Mean Corpuscular Hemoglobin Concent 33 32-36 g/dL Red Cell Distribution Width 14.1 10.0-14.5 % Platelet Count 181 130-400 10^3/uL Mean Platelet Volume 10.1 9.0-12.2 fL Immature Granulocyte % (Auto) 0 % Neutrophils (%) (Auto) 53 42-75 % Lymphocytes (%) (Auto) 35 12-44 % Monocytes (%) (Auto) 9 0-12 % Eosinophils (%) (Auto) 2 0-10 % Basophils (%) (Auto) 1 0-10 % Neutrophils # (Auto) 4.9 1.8-7.8 10^3/uL Lymphocytes # (Auto) 3.2 1.0-4.0 10^3/uL Monocytes # (Auto) 0.8 0.0-1.0 10^3/uL Eosinophils # (Auto) 0.2 0.0-0.3 10^3/uL Basophils # (Auto) 0.1 0.0-0.1 10^3/uL Immature Granulocyte # (Auto) 0.0 0.0-0.1 10^3/uL Sodium Level 141 135-145 MMOL/L Potassium Level 3.9 3.6-5.0 MMOL/L Chloride Level 106 98-107 MMOL/L Carbon Dioxide Level 23 21-32 MMOL/L Anion Gap 12 5-14 MMOL/L Blood Urea Nitrogen 12 7-18 MG/DL Creatinine 1.04 0.60-1.30 MG/DL Estimat Glomerular Filtration Rate > 60 BUN/Creatinine Ratio 12 Glucose Level 154 H 70-105 MG/DL Calcium Level 9.0 8.5-10.1 MG/DL Corrected Calcium 8.8 8.5-10.1 MG/DL Magnesium Level 1.8 1.6-2.4 MG/DL Total Bilirubin 0.6 0.1-1.0 MG/DL Aspartate Amino Transf (AST/SGOT) 23 5-34 U/L Alanine Aminotransferase (ALT/SGPT) 26 0-55 U/L Alkaline Phosphatase 63 40-136 U/L Lactate Dehydrogenase 179 125-220 U/L C-Reactive Protein High Sensitivity 0.19 0.00-0.50 MG/DL Total Protein 7.0 6.4-8.2 GM/DL Albumin 4.3 3.2-4.5 GM/DL Urine Color YELLOW Urine Clarity CLEAR Urine pH 7.0 5-9 Urine Specific [place] 1.010 L 1.016-1.022 Urine Protein NEGATIVE NEGATIVE Urine Glucose (UA) 3+ H NEGATIVE Urine Ketones NEGATIVE NEGATIVE Urine Nitrite NEGATIVE NEGATIVE Urine Bilirubin NEGATIVE NEGATIVE Urine Urobilinogen 0.2 < = 1.0 MG/DL Urine Leukocyte Esterase NEGATIVE NEGATIVE Urine RBC (Auto) NEGATIVE NEGATIVE Urine RBC NONE /HPF Urine WBC NONE /HPF Urine Squamous Epithelial Cells RARE /HPF Urine Crystals NONE /LPF Urine Bacteria TRACE /HPF Urine Casts NONE /LPF Urine Mucus NEGATIVE /LPF Urine Culture Indicated NO My Orders Orders - DIONY MERRITT MD Cbc With Automated Diff (05/22/20 20:04) Comprehensive Metabolic Panel (05/22/20 20:04) Magnesium (05/22/20 20:04) Ua Culture If Indicated (05/22/20 20:04) Ed Iv/Invasive Line Start (05/22/20 20:04) Hs C Reactive Protein (05/22/20 20:05) LDH (05/22/20 20:38) Ketorolac Injection (Toradol Injection) (05/22/20 22:00) Vital Signs/I&O 05/22/20 05/22/20 20:19 22:09 Temp 36.2 Pulse 62 60 Resp 20 18 B/P (MAP) 161/104 (123) 128/92 Pulse Ox 98 98 O2 Delivery Room Air Room Air Blood Pressure Mean: 123 Progress Progress Note : Progress Note Labs were essentially unremarkable. I discussed possible etiologies and options for additional workup with the patient. We discussed CT imaging. I prefer that he wait and discuss this with his oncology team before committing to a CT scan. He was advised to discuss this with his oncology team tomorrow. His present symptoms may simply be due to gastroenteritis. Toradol was given for pain. See discharge instructions. Departure Impression Primary Impression: Right sided abdominal pain Additional Impressions: Acute diarrhea Nausea Disposition: 01 HOME, SELF-CARE Condition: Improved Departure-Patient Inst. Decision time for Depature: 21:49 Referrals: [facility] (PCP/Family) Primary Care Physician Patient Instructions: Severe Abdominal Pain, Adult (DC) Add. Discharge Instructions: Start with clear liquids and gradually advance your diet with small quantities of bland food as tolerated. Avoid fatty or greasy foods and milk products until your diarrhea has resolved for a few days. Use Zofran as prescribed for nausea and vomiting. If your pain has not resolved by the end of the week, follow-up with your primary care provider and/or oncologist. Call your oncologist tomorrow and inquire about any further instructions they may have regarding your abdominal pain. For pain you may take Tylenol (acetaminophen) up to 1000 mg every 6 hours as needed and/or ibuprofen up to 600 mg every 6 hours as needed. Return to emergency room if you have worsening symptoms. All discharge instructions reviewed with patient and/or family. Voiced understanding. Scripts Ondansetron (Ondansetron Odt) 4 Mg Tab.rapdis 4 MG SL Q4H PRN for NAUSEA/VOMITING, #10 TAB Prov: DIONY MERRITT MD 05/22/20 Copy Copies To 1: JORDYN SANABRIA JOSHUA T MD May 22, 2020 21:52
[2020-05-22] MEDS ORDERED: KETOROLAC 30 MG/ML VIAL IVP ONE (22:00)
[2020-05-22 22:09] VITALS: BP 128/92
--- NOTE | 2020-05-22 22:10 | NUR ---
D/C EDUCATION PROVIDED; UNDERSTANDING VERBALIZED. ALL QUESTIONS AND CONCERNS ADDRESSED.
== END 2020-05-22 22:14 | disposition home or self-care (01) ==
LOC: EDUNIT# 20:00 → ER 20:03
DX: R10.11 Right upper quadrant pain (principal); R19.7 Diarrhea, unspecified; R11.0 Nausea; E66.9 Obesity, unspecified; K21.9 Gastro-esophageal reflux disease without esophagitis; I10 Essential (primary) hypertension; Z68.32 Body mass index [BMI] 32.0-32.9, adult; Z82.61 Family history of arthritis; Z83.3 Family history of diabetes mellitus; Z82.49 Family history of ischemic heart disease and other diseases of the circulatory system; Z80.9 Family history of malignant neoplasm, unspecified; Z85.528 Personal history of other malignant neoplasm of kidney; Z87.891 Personal history of nicotine dependence; Z88.1 Allergy status to other antibiotic agents; Z88.2 Allergy status to sulfonamides; Z90.49 Acquired absence of other specified parts of digestive tract
CPT/HCPCS: 36415; 80053; 81000; 82962; 83615; 83735; 85025; 86141; 99282

== ENCOUNTER → 2020-05-24 | Outpatient (CLI) | payer BC ==
[~2020-05-24] MED LIST changes: +EMPA25TA PO; +HOLD METFORMIN - RECEIVED CONTRAST 20 ML VIAL IV SCH; +IOHEXOL 350 MG/ML 100 ML (OMNIPAQUE 350) VIAL IV ONE; +NS 100 ML (IVPB) BAG IV ONE; +ONDA4TAB11 SL
[2020-05-24 12:54] LABS: HEMOGLOBIN 16.8 g/dL (13.3-17.7); MEAN PLATELET VOLUME 9.8 fL (9.0-12.2); WHITE BLOOD COUNT 9.6 10^3/uL (4.3-11.0)
--- NOTE | 2020-05-24 15:45 | Diagnostic Imaging Report ---
PROCEDURE: CT abdomen and pelvis with contrast. TECHNIQUE: Multiple contiguous axial images were obtained through the abdomen and pelvis after administration of intravenous contrast. Auto Exposure Controls were utilized during the CT exam to meet ALARA standards for radiation dose reduction. All CT scans use one or more of the following dose optimizing techniques: automated exposure control, MA and/or KvP adjustment based on patient size and exam type or iterative reconstruction. DATE: May 24, 2020. COMPARISON: CT abdomen and pelvis May 02, 2019. INDICATION: 39-year-old male, right lateral abdominal pain. History of renal malignancy. FINDINGS: The visualized portions of the lung bases are clear. The heart is not enlarged. There is no identified pericardial effusion. The liver is normal in size and contour. There is no identified focal liver lesion. The gallbladder is not seen and may be surgically absent or contracted. There is no biliary ductal dilation. The main pancreatic duct is not abnormally dilated. Unremarkable appearance of the pancreatic parenchyma. The spleen is normal in size. The adrenal glands are unremarkable. There are procedural related changes of the left kidney. There is no identified residual or recurrent renal mass. There is no new renal mass. The urinary collecting systems are not distended. There is no identified renal or ureteral stone. The urinary bladder is collapsed and not well evaluated. Intestinal tract is not distended. The appendix is unremarkable and best seen on axial image 66. There is no free intraperitoneal air. There is no drainable fluid collection. There is no free pelvic fluid. There is rectus muscle diastasis. There is close apposition of small bowel segments of the anterior abdominal wall which could reflect adhesions. There is no evidence of bowel obstruction. There are atherosclerotic calcifications. There is no identified abnormally enlarged lymph node in the abdomen or pelvis meeting CT size criteria for adenopathy. There is no identified acute bony abnormality. IMPRESSION: CT abdomen and pelvis: 1. Procedure related changes of the left kidney without evidence of residual or recurrent malignancy. 2. No evidence of metastatic disease in the abdomen or pelvis. 3. No acute abnormality in the abdomen or pelvis. Dictated by: Dictated on workstation # [id number]
== END ==
LOC: RAD 12:17
PROVIDERS: ATTEND Nurse Practitioner Community Health
DX: R10.9 Unspecified abdominal pain (principal); Z85.528 Personal history of other malignant neoplasm of kidney
CPT/HCPCS: 36415; 74177; 85027

== ENCOUNTER 2020-05-25 16:25 | Outpatient (RCR) | payer BC ==
[~2020-05-25 16:25] MED LIST changes: +AMLO-251 PO; -AMLO10TA7 PO; -EMPA25TA PO; -HOLD METFORMIN - RECEIVED CONTRAST 20 ML VIAL IV SCH; -IOHEXOL 350 MG/ML 100 ML (OMNIPAQUE 350) VIAL IV ONE; -NS 100 ML (IVPB) BAG IV ONE
[2020-05-26] MEDS ORDERED: EMPA25TA PO (10:35)
== END 2020-08-23 | disposition home or self-care (01) ==
LOC: LAB 16:25
PROVIDERS: ATTEND Surgery
DX: Z01.89 Encounter for other specified special examinations (principal)
CPT/HCPCS: 87015; 87045; 87046; 87324; 87328; 87329; 87449; 87899

== ENCOUNTER 2020-05-26 05:49 | Outpatient (CLI) | payer BC ==
[~2020-05-26] VITALS: Ht 185.5 cm; Wt 110.0 kg
[~2020-05-26 05:49] MED LIST changes: -EMPA25TA PO
[2020-05-26] MEDS ORDERED: EMPA25TA PO (10:35)
== END 2020-05-26 10:39 ==
LOC: PREOP 05:49
PROVIDERS: ATTEND Surgery
DX: Z01.818 Encounter for other preprocedural examination (principal); R10.11 Right upper quadrant pain; Z20.828 Contact with and (suspected) exposure to other viral communicable diseases

== ENCOUNTER → 2020-05-26 | Outpatient (CLI) | payer BC ==
[~2020-05-26] MED LIST changes: -AMLO-251 PO; +AMLO10TA7 PO; +EMPA25TA PO
== END ==
LOC: LAB FS 10:05
PROVIDERS: ATTEND Surgery
DX: R10.11 Right upper quadrant pain (principal); Z20.828 Contact with and (suspected) exposure to other viral communicable diseases
CPT/HCPCS: 87635

== ENCOUNTER 2020-05-29 09:51 | Day surgery (SDC) | payer BC ==
[~2020-05-29] VITALS: Ht 185.5 cm; Wt 110.0 kg
[2020-05-29] VITALS (9 sets, daily range): BP systolic 104–133; BP diastolic 55–92
[~2020-05-29 09:51] MED LIST changes: +AMLO-251 PO; -AMLO10TA7 PO; +EMPA25TA PO
[2020-05-29] MEDS ORDERED: LACTATED RINGERS 1,000 ML IV STA (10:07)
[2020-05-29] MEDS ORDERED: HURRICAINE EXT TUBE (BENZOCAINE) XX PRN (10:15)
[2020-05-29] MEDS ORDERED: LACTATED RINGERS 1,000 ML IV ONE (10:26)
--- NOTE | 2020-05-29 10:31 | Progress Note-Pre Operative ---
Pre-Operative Progress Note H&P Reviewed The H&P was reviewed, patient examined and no changes noted. Time Seen by Provider: 10: Date H&P Reviewed: May 29, 2020 Time H&P Reviewed: 10: Pre-Operative Diagnosis: RUQ pain COLBY SOLORIO DO May 29, 2020 10:31
[2020-05-29] MEDS ORDERED: MIDAZOLAM 2 MG/2 ML (VERSED) VIAL ONE (10:58)
[2020-05-29] MEDS ORDERED: PROPOFOL INJECTION 50 ML IV ONE (10:58)
--- NOTE | 2020-05-29 11:19 | Progress Note-Post Operative ---
Post-Operative Progess Note Surgeon (s)/Auto Damage Adjuster (s) Surgeon COLBY SOLOROI DO Auto Damage Adjuster: none Pre-Operative Diagnosis RUQ pain Post-Operative Diagnosis Gastritis Sliding Hiatal hernia Procedure & Operative Findings Date of Procedure 05/29/20 Procedure Performed/Findings EGD with bx Anesthesia Type IV sedation by GAS STATION SERVICE ATTENDANT Estimated Blood Loss Estimated blood loss (mL): scant Specimens/Packing Specimens Removed antral bx body of stomach bx GE jxn bx COLBY SOLORIO DO May 29, 2020 11:19
--- NOTE | 2020-05-29 11:20 | Endoscopy Discharge Instruct ---
Endo Procedure/Findings Findings 1.: Gastritis 2.: Hiatal Hernia Discharge Instructions - Activity: You might feel a little sleepy until tomorrow. This is due to the medicine you received to relax you. Until tomorrow, you should: NOT drive a car, operate machinery or power tools. NOT drink any alcoholic beverages. NOT make any important decisions or sign importortant papers. Do not return to work until tomorrow, unless otherwise instructed. Resume previous activities tomorrow. Diet: Start by taking liquids. If you tolerate liquids, advance to solid food. 1.: EGD in 3 years Notify Physician - If you experience excessive bleeding, unusual abdominal pain, fever, or chest pain, contact your doctor immediately. COLBY SOLORIO DO May 29, 2020 11:20
--- NOTE | 2020-05-29 13:54 | Anesthesia-General Post-Op ---
MAC Patient Condition Mental Status/LOC: Same as Preop Cardiovascular: Satisfactory Nausea/Vomiting: Absent Respiratory: Satisfactory Pain: Controlled Complications: Absent Post Op Complications Complications None Follow Up Care/Instructions Patient Instructions None needed. Anesthesiology Discharge Order Discharge Order Patient is doing well, no complaints, stable vital signs, no apparent adverse anesthesia problems. No complications reported per nursing. STU SARMIENTO CRNA May 29, 2020 13:54
--- NOTE | 2020-05-30 04:00 | OPERATIVE REPORT ---
DATE OF SERVICE: 05/29/2020 PREOPERATIVE DIAGNOSIS: Right upper quadrant pain. POSTOPERATIVE DIAGNOSES: Gastritis, sliding hiatal hernia. PROCEDURE: EGD with biopsy. SURGEON: Pelon Ortega DO ENVELOPE PATTERNMAKER: None. ANESTHESIA: IV sedation by the KEYBOARD INSTRUMENT REPAIRER. SPECIMEN: Biopsy of the antrum, biopsy of body of stomach, biopsy from GE junction. BLOOD LOSS: Scant. FLUIDS: Per anesthesia. POSTOPERATIVE CONDITION: Stable. INDICATION FOR PROCEDURE: The patient is a 39-year-old male who has had continued right upper quadrant pain. Nothing seems to make it better. History of gallbladder surgery as well as a colostomy secondary to diverticulitis. FINDINGS: The patient had a lot of bile in the stomach, some mild gastritis and noted to have a sliding hiatal hernia, every time he hiccupped, a large amount of stomach went up into the GE junction. PROCEDURE NOTE: After informed consent was obtained, the patient was brought to the endoscopy suite, placed in bed in left lateral decubitus position. He was administered IV sedation by the KEYBOARD INSTRUMENT REPAIRER who then monitored his vitals the entire time, heart rate, blood pressure and pulse ox and the scope was inserted down the mouth through the esophagus into the stomach. Immediately upon entering the stomach, noted a large amount of bile. Pushed through into the duodenum. Duodenum looked fine, took a picture. Pulled back, did a biopsy of the antrum. Retroflexed the scope, did a biopsy of body of stomach and then the patient was hiccupping during the procedure and saw a large amount of stomach go up into the GE junction. This looked like a sliding hiatal hernia. At this point, then pulled the scope up into the GE junction, did a biopsy, then pushed the scope back into the stomach, suctioned all the air out and then pulled the scope up the esophagus and out the mouth. The patient tolerated the procedure. He was recovered in endoscopy suite. Job ID: [id number] DocumentID: [id number] Dictated Date: 05/29/2020 18:00:32 Line Repairer Tower Date: 05/30/2020 03:59:04 Dictated By: PELON ORTEGA DO [facility]
== END 2020-05-29 12:15 | disposition home or self-care (01) ==
LOC: ENDO 09:51
PROVIDERS: ATTEND Surgery
DX: K29.50 Unspecified chronic gastritis without bleeding (principal); K44.9 Diaphragmatic hernia without obstruction or gangrene; K57.92 Diverticulitis of intestine, part unspecified, without perforation or abscess without bleeding; I10 Essential (primary) hypertension; G47.33 Obstructive sleep apnea (adult) (pediatric); K21.00 Gastro-esophageal reflux disease with esophagitis, without bleeding; E11.9 Type 2 diabetes mellitus without complications; F41.9 Anxiety disorder, unspecified; E66.9 Obesity, unspecified; Z68.32 Body mass index [BMI] 32.0-32.9, adult; Z79.899 Other long term (current) drug therapy; Z88.2 Allergy status to sulfonamides; Z88.8 Allergy status to other drugs, medicaments and biological substances; Z91.018 Allergy to other foods; Z87.891 Personal history of nicotine dependence; Z93.3 Colostomy status; Z80.9 Family history of malignant neoplasm, unspecified
CPT/HCPCS: 82962

== ENCOUNTER → 2021-04-17 | Outpatient (CLI) | payer BC ==
[~2021-04-17] MED LIST changes: -LISI-552 PO; +LISI20TA26 PO; -LISI40TA PO; +LISI40TA9 PO; -RABE20TA27 PO; +RABE20TA30 PO
== END ==
LOC: LAB FS 11:00
PROVIDERS: ATTEND Emergency Medicine
DX: Z01.812 Encounter for preprocedural laboratory examination (principal); Z20.822 Contact with and (suspected) exposure to COVID-19
CPT/HCPCS: 87636

== ENCOUNTER → 2021-05-01 | Outpatient (CLI) | payer BC | LOC: LAB FS 10:10 | PROVIDERS: ATTEND Emergency Medicine | DX: Z01.812 Encounter for preprocedural laboratory examination (principal); Z20.822 Contact with and (suspected) exposure to COVID-19 | CPT/HCPCS: 87635 ==

== ENCOUNTER → 2021-12-07 | Outpatient (CLI) | payer BC ==
[~2021-12-07] MED LIST changes: +DICY20TA PO; -DICY20TA10 PO
--- NOTE | 2021-12-07 11:32 | Diagnostic Imaging Report ---
INDICATION: Right foot pain. FINDINGS: There is a flexure hammertoe deformity noted of the third and fourth toes. The proximal interphalangeal joints appear normal. The MP joints are normal. No evidence of definite acute fracture. IMPRESSION: Flexure deformity of the third and fourth toes. Could not exclude subluxation of the DIP joints. Dictated by: Dictated on workstation # [id number]
== END ==
LOC: RAD FS 10:45
PROVIDERS: ATTEND Nurse Practitioner Family
DX: M21.271 Flexion deformity, right ankle and toes (principal)
CPT/HCPCS: 73630

== ENCOUNTER 2022-04-11 08:09 | Emergency (ER) | payer BC ==
[~2022-04-11] VITALS: Ht 185.4 cm; Wt 113.4 kg
[2022-04-11] MEDS ORDERED: NS IV 1000 ML 1,000 ML IV STA (08:25)
[2022-04-11] MEDS ORDERED: ONDANSETRON 4 MG/2 ML (SDV) Z0FRAN IVP STA (08:25)
[2022-04-11] MEDS ORDERED: KETOROLAC 30 MG/ML VIAL IVP STA (08:25)
[2022-04-11] MEDS ORDERED: IOHEXOL 350 MG/ML 100 ML (OMNIPAQUE 350) VIAL IV ONE (08:30)
[2022-04-11] MEDS ORDERED: HOLD METFORMIN - RECEIVED CONTRAST 20 ML VIAL IV SCH (08:30)
[2022-04-11] MEDS ORDERED: CATHETER FLUSH 10 ML SYR IV PRN (08:30)
[2022-04-11] MEDS ORDERED: NS 100 ML (IVPB) BAG IV ONE (08:30)
--- NOTE | 2022-04-11 08:31 | ED Abdominal Pain ---
General Stated Complaint: ABD PAIN Source of Information: Patient History of Present Illness Date Seen by Provider: Apr 11, 2022 Time Seen by Provider: 08:12 Initial Comments 41-year-old male presenting with complaints of right upper quadrant abdominal pain since yesterday. He states that pain is worse when he moves. He has had some nausea but no vomiting. He states that he has not eaten since before the pain started. He feels like the pain is constant and sharp to achy. It has not moved in location. He denies any change in his bowels. He has had no dark tarry stools or blood in his stool. He has not taken anything for the pain. He denies pain with urination. He states he has continued to drink fluids even though he has not eaten. He denies fever or chills. He states this pain does not feel similar to pains that he has had in his belly in the past. Timing/Duration: 1 Day Severity/Quality: Severe, Aching, Sharp Location: RUQ Radiation: No Radiation Activities at Onset: None Modifying Factors: Worsens With Movement Associated Symptoms: No Back Pain, No Chest Pain, No Diaphoresis, No Fever/Chills, No Fatigue, No Headache, No Heartburn; Nausea/Vomiting (Nausea but no vomiting); No Rash, No Shortness of Air, No Swelling/Mass in Abdomen, No Syncope, No Weakness Allergies and Home Medications Allergies Coded Allergies: sulfamethoxazole (Verified Allergy, Intermediate, PATIENT GOT DEHYDRATED, 07/09/18) trimethoprim (Verified Allergy, Intermediate, PATIENT GOT DEHYDRATED, 07/09/18) coconut oil (Verified Allergy, Unknown, 07/09/18) Patient Home Medication List Home Medication List Reviewed: Yes Amlodipine Besylate (Amlodipine Besylate) 10 Mg Tablet, 10 MG PO DAILY, (Reported) Entered as Reported by: GIORGI SAHA on 10/20/18 1540 Dicyclomine HCl (Dicyclomine HCl) 20 Mg Tablet, 20 MG PO Q6H PRN for abdominal pain Prescribed by: ANTHONY BETH on 04/11/22 1011 Empagliflozin (Jardiance) 25 Mg Tablet, 25 MG PO DAILY, (Reported) Entered as Reported by: COLIN VARGAS on 05/26/20 1035 Pantoprazole Sodium (Pantoprazole Sodium) 40 Mg Tablet.dr, 40 MG PO DAILY, (Reported) Entered as Reported by: CHERI BLANCO on 10/21/18 0832 Review of Systems Review of Systems Constitutional: No chills, No fever EENTM: No Symptoms Reported Respiratory: No Symptoms Reported Cardiovascular: No Symptoms Reported Gastrointestinal: See HPI Genitourinary: Denies Burning, Denies Pain Musculoskeletal: no symptoms reported Skin: No rash Psychiatric/Neurological: No Symptoms Reported Endocrine: No Symptoms Reported Hematologic/Lymphatic: No Symptoms Reported Past Thmrbyo-Gawrde-Famjff Hx Patient Social History Substance use?: Yes Substance type: Marijuana Immunizations Up To Date Tetanus Booster (TDap): Less than 5yrs Seasonal Allergies Seasonal Allergies: Yes Past Medical History Surgery/Hospitalization HX: Renal cell carcinoma, diverticulitis with perforation and bowel resection, cholecystectomy, GERD, sleep apnea, hypertension, hiatal hernia Surgeries: Yes (colostomy then reversal, partial kidney removed) Abdominal, Bowel Surgery, Gallbladder, Renal Respiratory: Yes Sleep Apnea Currently Using CPAP: Yes Cardiac: Yes Hypertension Neurological: Yes (hx of meningitis) Meningitis Reproductive Disorders: No Sexually Transmitted Disease: No HIV/AIDS: No Genitourinary: Yes (LEFT RENAL CANCER REMOVED 2016--NO CHEMO OR RADIATION) UTI-Chronic Gastrointestinal: Yes (colostomy with reversal) Gastroesophageal Reflux, Chronic Constipation, Diverticulosis, Chronic Diarrhea, Hiatal Hernia, Gall Bladder Disease Musculoskeletal: Yes (ARTHRITIS) Arthritis, Chronic Back Pain Endocrine: Yes Diabetes, Non-Insulin dep HEENT: No Loss of Vision: Denies Hearing Impairment: Denies Cancer: Yes Kidney Did You Recieve Any Treatments: Yes What Type of Treatment Did You: Surgical Intervention Psychosocial: Yes Anxiety Integumentary: No Blood Disorders: No Adverse Reaction/Blood Tranf: No (N/A) Family Medical History Abdominal aortic aneurysm 19 FATHER Alcoholism 19 MOTHER Cancer 19 MOTHER Cataract 19 FATHER 19 MOTHER Chest pain 19 FATHER 19 MOTHER Congestive heart failure 19 FATHER 19 MOTHER Family history: Arthritis 19 FATHER 19 MOTHER Family history: Cardiovascular disease Family history: Diabetes mellitus 19 MOTHER Family history: Hypertension 19 FATHER 19 MOTHER Heart disease 19 FATHER 19 MOTHER History of drug abuse 19 MOTHER Hypercholesterolemia 19 FATHER Kidney disease Myocardial infarction 19 FATHER Sudden cardiac in father No Family History of: Patrick's disease Aphasia Cancer of colon Congenital heart disease Cystic fibrosis Dementia Dysphagia Family history: Allergy Family history: Alzheimer's disease Family history: Asthma Family history: Breast disease Family history: Coronary thrombosis Family history: Gastrointestinal disease Family history: Glaucoma Family history: Osteoporosis Family history: Thyroid disorder Headache Hearing loss Hereditary disease History of - anemia History of - disorder History of - respiratory disease Human immunodeficiency virus (HIV) seropositivity Infertile Malignant neoplasm of lung Parkinson's disease Prostate cancer Psychotic disorder Seizure disorder Stroke Tuberculosis Visual impairment No Pertinent Family Hx Physical Exam Vital Signs Vital Signs - First Documented 04/11/22 08:16 Temp 36.2 Pulse 73 Resp 16 B/P (MAP) 147/98 (114) Pulse Ox 98 O2 Delivery Room Air Capillary Refill : Height/Weight/BMI Height: 6'1.00" Weight: 269lbs. 5.0oz. 122.317332yk; 31.96 BMI Method:Stated General Appearance: no apparent distress, obese HEENT: PERRL/EOMI, normal ENT inspection, pharynx normal Neck: non-tender, full range of motion, supple, normal inspection Respiratory: chest non-tender, lungs clear, normal breath sounds, no respiratory distress, no accessory muscle use Cardiovascular: normal peripheral pulses, regular rate, rhythm Gastrointestinal: normal bowel sounds, soft, no pulsatile mass; No distended, No guarding, No rebound; tenderness (Right upper quadrant) Rectal: deferred Back: no CVA tenderness Neurologic/Psychiatric: alert, oriented x 3 Skin: normal color, warm/dry Progress/Results/Core Measures Results/Orders Lab Results Laboratory Tests Test 04/11/22 08:20 04/11/22 09:11 Range/Units White Blood Count 9.4 4.3-11.0 10^3/uL Red Blood Count 6.78 H 4.30-5.52 10^6/uL Hemoglobin 18.2 H 13.3-17.7 g/dL Hematocrit 55 H 40-54 % Mean Corpuscular Volume 81 80-99 fL Mean Corpuscular Hemoglobin 27 25-34 pg Mean Corpuscular Hemoglobin Concent 33 32-36 g/dL Red Cell Distribution Width 17.1 H 10.0-14.5 % Platelet Count 179 130-400 10^3/uL Mean Platelet Volume 9.9 9.0-12.2 fL Immature Granulocyte % (Auto) 1 % Neutrophils (%) (Auto) 55 42-75 % Lymphocytes (%) (Auto) 34 12-44 % Monocytes (%) (Auto) 8 0-12 % Eosinophils (%) (Auto) 2 0-10 % Basophils (%) (Auto) 1 0-10 % Neutrophils # (Auto) 5.2 1.8-7.8 10^3/uL Lymphocytes # (Auto) 3.2 1.0-4.0 10^3/uL Monocytes # (Auto) 0.8 0.0-1.0 10^3/uL Eosinophils # (Auto) 0.2 0.0-0.3 10^3/uL Basophils # (Auto) 0.1 0.0-0.1 10^3/uL Immature Granulocyte # (Auto) 0.1 0.0-0.1 10^3/uL Sodium Level 142 135-145 MMOL/L Potassium Level 4.1 3.6-5.0 MMOL/L Chloride Level 104 98-107 MMOL/L Carbon Dioxide Level 25 21-32 MMOL/L Anion Gap 13 5-14 MMOL/L Blood Urea Nitrogen 15 7-18 MG/DL Creatinine 1.09 0.60-1.30 MG/DL Estimat Glomerular Filtration Rate 89 BUN/Creatinine Ratio 14 Glucose Level 129 H 70-105 MG/DL Calcium Level 9.6 8.5-10.1 MG/DL Corrected Calcium 8.5-10.1 MG/DL Total Bilirubin 0.7 0.1-1.0 MG/DL Aspartate Amino Transf (AST/SGOT) 33 5-34 U/L Alanine Aminotransferase (ALT/SGPT) 52 0-55 U/L Alkaline Phosphatase 80 40-136 U/L Total Protein 7.7 6.4-8.2 GM/DL Albumin 4.8 H 3.2-4.5 GM/DL Lipase 26 8-78 U/L Urine Color YELLOW Urine Clarity CLEAR Urine pH 5.5 5-9 Urine Specific Morrison 1.015 L 1.016-1.022 Urine Protein NEGATIVE NEGATIVE Urine Glucose (UA) 3+ H NEGATIVE Urine Ketones 1+ H NEGATIVE Urine Nitrite NEGATIVE NEGATIVE Urine Bilirubin NEGATIVE NEGATIVE Urine Urobilinogen 0.2 < = 1.0 MG/DL Urine Leukocyte Esterase NEGATIVE NEGATIVE Urine RBC (Auto) TRACE-I H NEGATIVE Urine RBC RARE /HPF Urine WBC RARE /HPF Urine Squamous Epithelial Cells RARE /HPF Urine Crystals NONE /LPF Urine Bacteria NEGATIVE /HPF Urine Casts NONE /LPF Urine Mucus NEGATIVE /LPF Urine Culture Indicated NO Urine Opiates Screen NEGATIVE NEGATIVE Urine Oxycodone Screen NEGATIVE NEGATIVE Urine Methadone Screen NEGATIVE NEGATIVE Urine Propoxyphene Screen NEGATIVE NEGATIVE Urine Barbiturates Screen NEGATIVE NEGATIVE Ur Tricyclic Antidepressants Screen NEGATIVE NEGATIVE Urine Phencyclidine Screen NEGATIVE NEGATIVE Urine Amphetamines Screen NEGATIVE NEGATIVE Urine Methamphetamines Screen NEGATIVE NEGATIVE Urine Benzodiazepines Screen NEGATIVE NEGATIVE Urine Cocaine Screen NEGATIVE NEGATIVE Urine Cannabinoids Screen POSITIVE H NEGATIVE My Orders Orders - ANTHONY BETH MD Comprehensive Metabolic Panel (04/11/22 08:15) Lipase (04/11/22 08:15) Ua Culture If Indicated (04/11/22 08:15) Ed Iv/Invasive Line Start (04/11/22 08:15) Cbc With Automated Diff (04/11/22 08:15) Drug Screen Stat (Urine) (04/11/22 08:15) Ct Abdomen/Pelvis W (04/11/22 08:24) Ns Iv 1000 Ml (Sodium Chloride 0.9%) (04/11/22 08:25) Ondansetron Injection (Zofran Injectio (04/11/22 08:25) Iohexol Injection (Omnipaque 350 Mg/Ml 1 (04/11/22 08:30) Received Contrast (Hold Metformin- Contr (04/11/22 08:30) Sodium Chloride Flush (Catheter Flush Sy (04/11/22 08:30) Ns (Ivpb) (Sodium Chloride 0.9% Ivpb Bag (04/11/22 08:30) Ketorolac Injection (Toradol Injection) (04/11/22 08:34) Ketorolac Injection (Toradol Injection) (04/11/22 08:45) Medications Given in ED Current Medications Medications Dose Ordered Sig/Narciso Route Start Time Stop Time Status Last Admin Dose Admin Iohexol 100 ml ONCE ONCE IV 04/11/22 08:30 04/11/22 08:31 DC 04/11/22 09:05 100 ML Ketorolac Tromethamine 15 mg ONCE ONCE IVP 04/11/22 08:45 04/11/22 10:10 DC 04/11/22 08:42 15 MG Sodium Chloride 10 ml NEEDED PRN IV 04/11/22 08:30 04/11/22 09:05 10 ML Sodium Chloride 100 ml ONCE ONCE IV 04/11/22 08:30 04/11/22 08:31 DC 04/11/22 09:05 100 ML Vital Signs/I&O 04/11/22 08:16 Temp 36.2 Pulse 73 Resp 16 B/P (MAP) 147/98 (114) Pulse Ox 98 O2 Delivery Room Air Progress Progress Note #1: Progress Note Order labs including urinalysis. Urine drug screen in case he requires narcotic prescriptions. CT scan of the abdomen pelvis with IV contrast to evaluate for colitis, diverticulitis, bowel obstruction, gastritis, colon mass. Give normal saline 1 L IV fluid bolus for hydration, Toradol 15 mg IV for pain, Zofran 4 mg IV for nausea and vomiting. Progress Note #2: Time: 08:56 Progress Note CBC and chemistry did not show any acute significant abnormalities to account for his symptoms. He has elevated hemoglobin at 18.2 and his sugar was 129. Awaiting urine to run testing as well as CT scan result. Progress Note #3: Time: 09:[address] scan does not show acute abnormality to account for patient's pain. He has surgical changes from prior surgeries but no acute abnormality to indicate pain in RUQ. He had improvement in his pain with treatment and was finally able to provide urine specimen. Awaiting result of UA. Progress Note #4: Time: 09:49 Progress Note Urinalysis shows 3+ glucose with 1+ ketones. There is no signs of infection. His urinalysis drug screen shows just the marijuana that he admits to smoking as recently as yesterday. Based off of his labs and CT scan there is no indication of acute diverticulitis, colitis, bowel obstruction, colon mass, kidney stone, UTI. Could add in Bentyl or dicyclomine for abdominal cramping and spasms and have patient follow-up with the clinic as he might benefit from colonoscopy if his pain is persisting. Diagnostic Imaging Diagonstic Imaging: CT Plain Films/CT/US/NM/MRI: abdomen, pelvis Comments NAME: NANETTE NATHAN Anatoliy MED REC#: [id number] PT STATUS: REG ER : 1980 PHYSICIAN: ANTHONY BETH MD ADMIT DATE: 04/11/22/ER FS Draft Date of Exam:04/11/22 CT ABDOMEN/PELVIS W PROCEDURE: CT abdomen and pelvis with contrast. TECHNIQUE: Multiple contiguous axial images were obtained through the abdomen and pelvis after administration of intravenous contrast. Auto Exposure Controls were utilized during the CT exam to meet ALARA standards for radiation dose reduction. All CT scans use one or more of the following dose optimizing techniques: automated exposure control, MA and/or KvP adjustment based on patient size and exam type or iterative reconstruction. INDICATION: Right upper quadrant abdominal pain. COMPARISON: 05/24/2020 There is low-density throughout the liver suggestive of steatosis. Gallbladder is not visible and may be absent. No focal hepatic abnormality or biliary ductal dilatation is seen. There is no evidence of pancreatic, adrenal gland or splenic abnormality. Kidneys are also stable with surgical findings on the lateral aspect of the left kidney. There is no hydronephrosis or evidence of obstructive uropathy. Surgical sutures also noted within right mid abdominal bowel. There is no evidence of free fluid. No pathologically enlarged adenopathy is identified. There is no evidence of appendiceal inflammation. Surgical suture also is present in the region of sigmoid colon. Unopacified bladder is unremarkable. IMPRESSION: Surgical findings along the right abdomen without evidence of acute abnormality or focal inflammation. There is also evidence of previous left renal surgery without evidence of obstructive uropathy. Dictated on workstation # [id number] Dict: 04/11/22909 Trans: 04/11/22918 CV [id number] Interpreted by: CAMACHO CALL MD Electronically signed by: Reviewed: Reviewed by Me Departure Impression Primary Impression: Right upper quadrant pain Disposition: 01 HOME, SELF-CARE Condition: Stable Departure-Patient Inst. Decision time for Depature: 10:11 Referrals: CHERI MARTINEZ APRN (PCP) Primary Care Physician [facility] (Family) Primary Care Physician Patient Instructions: Abdominal Pain, Adult ED Add. Discharge Instructions: Stay well hydrated and drink plenty of fluids. Follow up with your primary provider as you may need to schedule a colonoscopy or EGD to look for other reasons for your pain. The labs and CT scan do not show signs of obstruction, diverticulitis, colitis, kidney stones. Try the dicyclomine (Bentyl) for abdominal pain and spasms. Follow a liquid diet for next 24 to 48 hours. Return or seek care if having worsening symptoms instead of improving symptoms. Scripts Dicyclomine HCl (Dicyclomine HCl) 20 Mg Tablet 20 MG PO Q6H PRN for abdominal pain for 7 Days, #28 TAB 0 Refills Prov: ANTHONY BETH MD 04/11/22 ANTHONY BETH MD Apr 11, 2022 08:31
[2022-04-11] MEDS ORDERED: KETOROLAC 15 MG/ML VIAL ONE (08:34)
[2022-04-11 08:37] LABS: BASOPHILS # (AUTO) 0.1 10^3/uL (0.0-0.1); BASOPHILS % (AUTO) 1 % (0-10); EOSINOPHILS # (AUTO) 0.2 10^3/uL (0.0-0.3); EOSINOPHILS % (AUTO) 2 % (0-10); HEMATOCRIT 55 % (40-54); HEMOGLOBIN 18.2 g/dL (13.3-17.7); LYMPHOCYTES # (AUTO) 3.2 10^3/uL (1.0-4.0); LYMPHOCYTES % (AUTO) 34 % (12-44); MEAN CORPUSCULAR HEMOGLOBIN 27 pg (25-34); MEAN CORPUSCULAR HGB CONC 33 g/dL (32-36); MEAN CORPUSCULAR VOLUME 81 fL (80-99); MEAN PLATELET VOLUME 9.9 fL (9.0-12.2); MONOCYTES # (AUTO) 0.8 10^3/uL (0.0-1.0); MONOCYTES % (AUTO) 8 % (0-12); NEUTROPHILS # (AUTO) 5.2 10^3/uL (1.8-7.8); NEUTROPHILS % (AUTO) 55 % (42-75); PLATELET COUNT 179 10^3/uL (130-400); WHITE BLOOD COUNT 9.4 10^3/uL (4.3-11.0)
[2022-04-11 08:45] LABS: LIPASE 26 U/L (8-78)
[2022-04-11] MEDS ORDERED: KETOROLAC 15 MG/ML VIAL IVP ONE (08:45)
[2022-04-11 08:51] LABS: ALKALINE PHOSPHATASE 80 U/L (40-136); BILIRUBIN,TOTAL 0.7 MG/DL (0.1-1.0); BUN/CREATININE RATIO 14; CALCIUM 9.6 MG/DL (8.5-10.1); CARBON DIOXIDE 25 MMOL/L (21-32); CHLORIDE 104 MMOL/L (98-107); CREATININE SERUM 1.09 MG/DL (0.60-1.30); GFR ESTIMATED 89; GLUCOSE 129 MG/DL (70-105); POTASSIUM 4.1 MMOL/L (3.6-5.0); SODIUM 142 MMOL/L (135-145)
[2022-04-11 08:52] LABS: ALANINE AMINOTRANSFERASE 52 U/L (0-55); ALBUMIN 4.8 GM/DL (3.2-4.5); TOTAL PROTEIN 7.7 GM/DL (6.4-8.2)
--- NOTE | 2022-04-11 09:20 | Diagnostic Imaging Report ---
PROCEDURE: CT abdomen and pelvis with contrast. TECHNIQUE: Multiple contiguous axial images were obtained through the abdomen and pelvis after administration of intravenous contrast. Auto Exposure Controls were utilized during the CT exam to meet ALARA standards for radiation dose reduction. All CT scans use one or more of the following dose optimizing techniques: automated exposure control, MA and/or KvP adjustment based on patient size and exam type or iterative reconstruction. INDICATION: Right upper quadrant abdominal pain. COMPARISON: 05/24/2020 There is low-density throughout the liver suggestive of steatosis. Gallbladder is not visible and may be absent. No focal hepatic abnormality or biliary ductal dilatation is seen. There is no evidence of pancreatic, adrenal gland or splenic abnormality. Kidneys are also stable with surgical findings on the lateral aspect of the left kidney. There is no hydronephrosis or evidence of obstructive uropathy. Surgical sutures also noted within right mid abdominal bowel. There is no evidence of free fluid. No pathologically enlarged adenopathy is identified. There is no evidence of appendiceal inflammation. Surgical suture also is present in the region of sigmoid colon. Unopacified bladder is unremarkable. IMPRESSION: Surgical findings along the right abdomen without evidence of acute abnormality or focal inflammation. There is also evidence of previous left renal surgery without evidence of obstructive uropathy. Dictated by: Dictated on workstation # [id number]
[2022-04-11 09:27] LABS: BILIRUBIN,URINE NEGATIVE (NEGATIVE); CLARITY,URINE CLEAR; COLOR,URINE YELLOW; GLUCOSE, URINE (UA) 3+ (NEGATIVE); KETONES,URINE 1+ (NEGATIVE); LEUKOCYTE ESTERASE ,URINE NEGATIVE (NEGATIVE); NITRITE,URINE NEGATIVE (NEGATIVE); PH,URINE 5.5 (5-9); PROTEIN,URINE NEGATIVE (NEGATIVE)
[2022-04-11 09:37] LABS: RBC,URINE RARE /HPF
[2022-04-11 09:38] LABS: BACTERIA,URINE NEGATIVE /HPF; SQUAMOUS EPITHELIAL CELL,UR RARE /HPF; WBC,URINE RARE /HPF
[2022-04-11 09:39] LABS: AMPHETAMINE SCREEN, URINE NEGATIVE (NEGATIVE); BENZODIAZEPINES SCREEN URINE NEGATIVE (NEGATIVE); COCAINE SCREEN URINE NEGATIVE (NEGATIVE)
[2022-04-11 09:40] LABS: BARBITURATE SCREEN URINE NEGATIVE (NEGATIVE); CANNABINOID SCREEN, URINE POSITIVE (NEGATIVE); METHADONE STAT NEGATIVE (NEGATIVE); OPIATE SCREEN URINE NEGATIVE (NEGATIVE); OXYCODONE STAT NEGATIVE (NEGATIVE); PROPOXYPHENE STAT NEGATIVE (NEGATIVE); TRICYCLIC ANTIDEPRESSANTS SCRE NEGATIVE (NEGATIVE)
[2022-04-11] MEDS ORDERED: DICY20TA PO (10:11)
[2022-04-11 10:14] VITALS: BP 138/85
== END 2022-04-11 10:14 | disposition home or self-care (01) ==
LOC: EDUNIT# 08:09 → ER FS 08:10
DX: R10.11 Right upper quadrant pain (principal); R11.0 Nausea; G47.30 Sleep apnea, unspecified; E66.9 Obesity, unspecified; D58.2 Other hemoglobinopathies; Z90.49 Acquired absence of other specified parts of digestive tract; Z99.89 Dependence on other enabling machines and devices; Z68.31 Body mass index [BMI] 31.0-31.9, adult
CPT/HCPCS: 36415; 74177; 80053; 80306; 81000; 83690; 85025; Q9967

== ENCOUNTER → 2022-04-23 | Outpatient (CLI) | payer BC ==
--- NOTE | 2022-04-23 14:29 | Diagnostic Imaging Report ---
EXAMINATION: Lumbosacral spine 2 or 3 views HISTORY: Pain. COMPARISON: None available. FINDINGS: There is minimal grade 1 retrolisthesis noted at L3-L4 with remaining alignment preserved. Vertebral body heights are maintained. There is facet hypertrophy at L4-L5 and L5-S1. There is mild intervertebral disc space narrowing at L5-S1. Soft tissues demonstrate postoperative changes within the right midabdomen. IMPRESSION: 1. Degenerative findings with no acute osseous abnormality. Dictated by: Dictated on workstation # [id number]
== END ==
LOC: RAD FS 11:39
PROVIDERS: ATTEND Nurse Practitioner Family
DX: M47.817 Spondylosis without myelopathy or radiculopathy, lumbosacral region (principal)
CPT/HCPCS: 72100

== ENCOUNTER 2022-07-24 10:14 | Emergency (ER) | payer BC ==
[~2022-07-24] VITALS: Ht 185 cm; Wt 112.0 kg
[2022-07-24] MEDS ORDERED: NS IV 1000 ML 1,000 ML IV STA ×2 (10:40→13:22)
[2022-07-24] MEDS ORDERED: DICYCLOMINE 10 MG/ML (BENTYL) 2 ML AMP IM STA (10:40)
[2022-07-24] MEDS ORDERED: ONDANSETRON 4 MG/2 ML (SDV) Z0FRAN IVP STA (10:40)
[2022-07-24 10:48] LABS: BASOPHILS # (AUTO) 0.1 10^3/uL (0.0-0.1); BASOPHILS % (AUTO) 1 % (0-10); EOSINOPHILS # (AUTO) 0.2 10^3/uL (0.0-0.3); EOSINOPHILS % (AUTO) 2 % (0-10); HEMATOCRIT 51 % (40-54); HEMOGLOBIN 16.8 g/dL (13.3-17.7); LYMPHOCYTES # (AUTO) 2.5 10^3/uL (1.0-4.0); LYMPHOCYTES % (AUTO) 28 % (12-44); MEAN CORPUSCULAR HEMOGLOBIN 27 pg (25-34); MEAN CORPUSCULAR HGB CONC 33 g/dL (32-36); MEAN CORPUSCULAR VOLUME 81 fL (80-99); MEAN PLATELET VOLUME 9.2 fL (9.0-12.2); MONOCYTES # (AUTO) 0.8 10^3/uL (0.0-1.0); MONOCYTES % (AUTO) 9 % (0-12); NEUTROPHILS # (AUTO) 5.2 10^3/uL (1.8-7.8); NEUTROPHILS % (AUTO) 60 % (42-75); PLATELET COUNT 160 10^3/uL (130-400); WHITE BLOOD COUNT 8.7 10^3/uL (4.3-11.0)
[2022-07-24 10:49] LABS: BILIRUBIN,URINE NEGATIVE (NEGATIVE); CLARITY,URINE CLEAR; COLOR,URINE YELLOW; GLUCOSE, URINE (UA) 3+ (NEGATIVE); KETONES,URINE NEGATIVE (NEGATIVE); LEUKOCYTE ESTERASE ,URINE NEGATIVE (NEGATIVE); NITRITE,URINE NEGATIVE (NEGATIVE); PROTEIN,URINE NEGATIVE (NEGATIVE)
[2022-07-24 11:00] LABS: RBC,URINE RARE /HPF
[2022-07-24 11:01] LABS: BACTERIA,URINE NEGATIVE /HPF; SQUAMOUS EPITHELIAL CELL,UR RARE /HPF
--- NOTE | 2022-07-24 11:10 | ED Abdominal Pain ---
General Chief Complaint: Abdominal/GI Problems Stated Complaint: ABDOMINAL PAIN Nursing Triage Note: REPORTS ABDOMINAL PAIN ON THE LEFT LOWER SIDE THAT STARTED ABOUT 0830 THIS AM. REPORTS SOME NAUSEA WELL. Source of Information: Patient, Old Records History of Present Illness Date Seen by Provider: Jul 24, 2022 Time Seen by Provider: 10:28 Initial Comments 41-year-old male presenting with complaints of sudden onset of left lower quadrant abdominal pain. He states around 830 this morning he was eating some saltine crackers and started having pain from his bellybutton to his left side. He states this does feel similar to when he has had diverticulitis in the past. He denies having any blood or dark tarry stools. He has had no bladder pain with urination. He has not had fever, chills, vomiting. He states with the pain he has some mild nausea. He had a bowel movement shortly before the pain started. He has not taken anything for pain at home. Timing/Duration: 1-3 Hours Severity/Quality: Severe, Cramping Location: LLQ Radiation: LLQ Activities at Onset: None Modifying Factors: Worsens With Movement, Worsens With Palpation Associated Symptoms: No Back Pain, No Chest Pain, No Diaphoresis, No Fever/Chills, No Fatigue, No Headache, No Heartburn; Nausea/Vomiting (nausea but no vomiting); No Rash, No Shortness of Air, No Swelling/Mass in Abdomen, No Syncope, No Weakness Allergies and Home Medications Allergies Coded Allergies: sulfamethoxazole (Verified Allergy, Intermediate, PATIENT GOT DEHYDRATED, 07/09/18) trimethoprim (Verified Allergy, Intermediate, PATIENT GOT DEHYDRATED, 07/09/18) coconut oil (Verified Allergy, Unknown, 07/09/18) Patient Home Medication List Home Medication List Reviewed: Yes Amlodipine Besylate (Amlodipine Besylate) 10 Mg Tablet, 10 MG PO DAILY, (Reported) Entered as Reported by: GIORGI SAHA on 10/20/18 1540 Dicyclomine HCl (Dicyclomine HCl) 20 Mg Tablet, 20 MG PO Q6H PRN for abdominal pain Prescribed by: ANTHONY BETH on 04/11/22 1011 Empagliflozin (Jardiance) 25 Mg Tablet, 25 MG PO DAILY, (Reported) Entered as Reported by: COLIN VARGAS on 05/26/20 1035 Pantoprazole Sodium (Pantoprazole Sodium) 40 Mg Tablet., 40 MG PO DAILY, (Reported) Entered as Reported by: CHERI BLANCO on 10/21/18 0832 Review of Systems Review of Systems Constitutional: No chills, No fever EENTM: No Symptoms Reported Respiratory: No Symptoms Reported Cardiovascular: No Symptoms Reported Gastrointestinal: See HPI Genitourinary: See HPI Musculoskeletal: no symptoms reported Skin: no symptoms reported Psychiatric/Neurological: No Symptoms Reported Endocrine: No Symptoms Reported Past Ivrbbcw-Nfxowk-Sueqlj Hx Patient Social History Tobacco Use?: No Use of E-Cig and/or Vaping dev: No Substance use?: Yes Substance type: Marijuana Alcohol Use?: No Pt feels they are or have been: No Immunizations Up To Date Tetanus Booster (TDap): Less than 5yrs First/Initial COVID19 Vaccinat: None Second COVID19 Vaccination Janak: None Third COVID19 Vaccination Date: None Seasonal Allergies Seasonal Allergies: Yes Past Medical History Surgery/Hospitalization HX: Renal cell carcinoma, diverticulitis with perforation and bowel resection, cholecystectomy, GERD, sleep apnea, hypertension, hiatal hernia Surgeries: Yes (colostomy then reversal, partial kidney removed) Abdominal, Bowel Surgery, Gallbladder, Renal Respiratory: Yes Sleep Apnea Currently Using CPAP: Yes Cardiac: Yes Hypertension Neurological: Yes (hx of meningitis) Meningitis Reproductive Disorders: No Sexually Transmitted Disease: No HIV/AIDS: No Genitourinary: Yes (LEFT RENAL CANCER REMOVED 2016--NO CHEMO OR RADIATION) UTI-Chronic Gastrointestinal: Yes (colostomy with reversal) Gastroesophageal Reflux, Chronic Constipation, Diverticulosis, Chronic Diarrhea, Hiatal Hernia, Gall Bladder Disease Musculoskeletal: Yes (ARTHRITIS) Arthritis, Chronic Back Pain Endocrine: Yes Diabetes, Non-Insulin dep HEENT: No Loss of Vision: Denies Hearing Impairment: Denies Cancer: Yes Kidney Did You Recieve Any Treatments: Yes What Type of Treatment Did You: Surgical Intervention Psychosocial: Yes Anxiety Integumentary: No Blood Disorders: No Adverse Reaction/Blood Tranf: No (N/A) Family Medical History Abdominal aortic aneurysm 19 FATHER Alcoholism 19 MOTHER Cancer 19 MOTHER Cataract 19 FATHER 19 MOTHER Chest pain 19 FATHER 19 MOTHER Congestive heart failure 19 FATHER 19 MOTHER Family history: Arthritis 19 FATHER 19 MOTHER Family history: Cardiovascular disease Family history: Diabetes mellitus 19 MOTHER Family history: Hypertension 19 FATHER 19 MOTHER Heart disease 19 FATHER 19 MOTHER History of drug abuse 19 MOTHER Hypercholesterolemia 19 FATHER Kidney disease Myocardial infarction 19 FATHER Sudden cardiac in father No Family History of: Patrick's disease Aphasia Cancer of colon Congenital heart disease Cystic fibrosis Dementia Dysphagia Family history: Allergy Family history: Alzheimer's disease Family history: Asthma Family history: Breast disease Family history: Coronary thrombosis Family history: Gastrointestinal disease Family history: Glaucoma Family history: Osteoporosis Family history: Thyroid disorder Headache Hearing loss Hereditary disease History of - anemia History of - disorder History of - respiratory disease Human immunodeficiency virus (HIV) seropositivity Infertile Malignant neoplasm of lung Parkinson's disease Prostate cancer Psychotic disorder Seizure disorder Stroke Tuberculosis Visual impairment No Pertinent Family Hx Physical Exam Vital Signs Vital Signs - First Documented 07/24/22 10:32 Temp 36.7 Pulse 76 Resp 18 B/P (MAP) 136/96 (109) Pulse Ox 98 O2 Delivery Room Air Capillary Refill : Less Than 3 Seconds Height/Weight/BMI Height: 6'1.00" Weight: 269lbs. 5.0oz. 122.627776lg; 32.00 BMI Method:Stated General Appearance: WD/WN, mild distress (holding his left side of abdomen), obese HEENT: PERRL/EOMI, pharynx normal Neck: non-tender, full range of motion, supple, normal inspection Respiratory: chest non-tender, lungs clear, normal breath sounds, no respiratory distress, no accessory muscle use Cardiovascular: normal peripheral pulses, regular rate, rhythm Gastrointestinal: normal bowel sounds, soft, no pulsatile mass; No distended, No guarding, No rebound; tenderness (LLQ) Rectal: deferred Extremities: normal range of motion, non-tender, normal capillary refill Back: no CVA tenderness Neurologic/Psychiatric: alert, oriented x 3 Skin: normal color, warm/dry Progress/Results/Core Measures Results/Orders Lab Results Laboratory Tests Test 07/24/22 10:32 07/24/22 10:42 Range/Units Urine Color YELLOW Urine Clarity CLEAR Urine pH 6.0 5-9 Urine Specific [place] <=1.005 1.016-1.022 Urine Protein NEGATIVE NEGATIVE Urine Glucose (UA) 3+ H NEGATIVE Urine Ketones NEGATIVE NEGATIVE Urine Nitrite NEGATIVE NEGATIVE Urine Bilirubin NEGATIVE NEGATIVE Urine Urobilinogen 0.2 < = 1.0 MG/DL Urine Leukocyte Esterase NEGATIVE NEGATIVE Urine RBC (Auto) NEGATIVE NEGATIVE Urine RBC RARE /HPF Urine WBC NONE /HPF Urine Squamous Epithelial Cells RARE /HPF Urine Crystals NONE /LPF Urine Bacteria NEGATIVE /HPF Urine Casts NONE /LPF Urine Mucus NEGATIVE /LPF Urine Culture Indicated NO White Blood Count 8.7 4.3-11.0 10^3/uL Red Blood Count 6.28 H 4.30-5.52 10^6/uL Hemoglobin 16.8 13.3-17.7 g/dL Hematocrit 51 40-54 % Mean Corpuscular Volume 81 80-99 fL Mean Corpuscular Hemoglobin 27 25-34 pg Mean Corpuscular Hemoglobin Concent 33 32-36 g/dL Red Cell Distribution Width 15.3 H 10.0-14.5 % Platelet Count 160 130-400 10^3/uL Mean Platelet Volume 9.2 9.0-12.2 fL Immature Granulocyte % (Auto) 0 % Neutrophils (%) (Auto) 60 42-75 % Lymphocytes (%) (Auto) 28 12-44 % Monocytes (%) (Auto) 9 0-12 % Eosinophils (%) (Auto) 2 0-10 % Basophils (%) (Auto) 1 0-10 % Neutrophils # (Auto) 5.2 1.8-7.8 10^3/uL Lymphocytes # (Auto) 2.5 1.0-4.0 10^3/uL Monocytes # (Auto) 0.8 0.0-1.0 10^3/uL Eosinophils # (Auto) 0.2 0.0-0.3 10^3/uL Basophils # (Auto) 0.1 0.0-0.1 10^3/uL Immature Granulocyte # (Auto) 0.0 0.0-0.1 10^3/uL Sodium Level 140 135-145 MMOL/L Potassium Level 4.0 3.6-5.0 MMOL/L Chloride Level 103 98-107 MMOL/L Carbon Dioxide Level 26 21-32 MMOL/L Anion Gap 11 5-14 MMOL/L Blood Urea Nitrogen 11 7-18 MG/DL Creatinine 0.99 0.60-1.30 MG/DL Estimat Glomerular Filtration Rate 99 BUN/Creatinine Ratio 11 Glucose Level 127 H 70-105 MG/DL Calcium Level 9.3 8.5-10.1 MG/DL Corrected Calcium 8.5-10.1 MG/DL Total Bilirubin 0.7 0.1-1.0 MG/DL Aspartate Amino Transf (AST/SGOT) 29 5-34 U/L Alanine Aminotransferase (ALT/SGPT) 52 0-55 U/L Alkaline Phosphatase 98 40-136 U/L Total Protein 7.5 6.4-8.2 GM/DL Albumin 4.8 H 3.2-4.5 GM/DL Lipase 28 8-78 U/L My Orders Orders - ANTHONY BETH MD Comprehensive Metabolic Panel (07/24/22 10:33) Lipase (07/24/22 10:33) Ua Culture If Indicated (07/24/22 10:33) Ed Iv/Invasive Line Start (07/24/22 10:33) Cbc With Automated Diff (07/24/22 10:33) Dicyclomine Injection (Bentyl Injection) (07/24/22 10:40) Ondansetron Injection (Zofran Injectio (07/24/22 10:40) Ns Iv 1000 Ml (Sodium Chloride 0.9%) (07/24/22 10:40) Ct Abdomen/Pelvis W (07/24/22 10:41) Iohexol Injection (Omnipaque 350 Mg/Ml 1 (07/24/22 11:30) Received Contrast (Hold Metformin- Contr (07/24/22 11:30) Ns (Ivpb) (Sodium Chloride 0.9% Ivpb Bag (07/24/22 11:30) Morphine Injection (Morphine Injection (07/24/22 13:22) Ns Iv 1000 Ml (Sodium Chloride 0.9%) (07/24/22 13:22) Medications Given in ED Current Medications Medications Dose Ordered Sig/Narciso Route Start Time Stop Time Status Last Admin Dose Admin Iohexol 100 ml ONCE ONCE IV 07/24/22 11:30 07/24/22 11:31 DC 07/24/22 11:37 100 ML Sodium Chloride 100 ml ONCE ONCE IV 07/24/22 11:30 07/24/22 11:31 DC 07/24/22 11:37 100 ML Vital Signs/I&O 07/24/22 07/24/22 10:32 14:46 Temp 36.7 36.7 Pulse 76 72 Resp 18 18 B/P (MAP) 136/96 (109) 124/84 Pulse Ox 98 98 O2 Delivery Room Air Room Air Blood Pressure Mean: 109 Progress Progress Note #1: Progress Note Obtain blood work as well as urine and a CT scan of the abdomen pelvis to evaluate for possible diverticulitis, colitis, bowel obstruction, abdominal mass. Urine to look for signs of kidney stones or infection or blood. Give normal saline 1 L IV fluid bolus for hydration, Bentyl 20 mg IM to try and help with the cramping pain. Progress Note #2: Progress Note CBC and chemistry are stable without any elevation of the white blood cell count. He does not have acute significant abnormalities on his chemistry panel. Urinalysis was not showing infection or blood. CT scan shows a partial small bowel obstruction with a transition point in the left upper quadrant. Small intestine dilated to 3.7 cm. when updating the patient he was agreeable to admit and was still having pain so given IV Morphine and additional fluids. [address] Jarrett on-call physician for [facility]. As patient had previously had his partial colectomy and treatment for perforated sigmoid diverticulitis at [facility] with Dr. Aburto and Dr. Laura, and he is stable and otherwise healthy will admit to [facility] after speaking with Dr. Aburto as she is covering for [facility]. His pain was improved with IV morphine and he continues to be stable and has had no emesis here. Will keep him NPO and await call from Dr. Aburto before transfer to [facility]. [address] Aburto and reviewed the history of his previous surgeries and interventions from 2014 and 2015. Discussed current findings on exam and CT. She wanted him to stay NPO and get IVF for hydration. Encourage Ambulation. She was ok with holding off on NG tube unless he has vomiting and worsening symptoms. Patient updated with plan and course. He requested to go by POV with his rather than going by ambulance. As he was hemodynamically stable, alert and oriented and not requiring an NG tube at this time will have him go with his but stressed need to go directly to [facility] and to stay NPO and not eat or drink anything. Diagnostic Imaging Diagonstic Imaging: CT Plain Films/CT/US/NM/MRI: abdomen, pelvis Comments [facility] [place], [place] NAME: JACNANETTE D MED REC#: [id number] PT STATUS: REG ER : 1980 PHYSICIAN: ANTHONY BETH MD ADMIT DATE: 07/24/22/ER FS Draft Date of Exam:07/24/22 CT ABDOMEN/PELVIS W PROCEDURE: CT abdomen and pelvis with contrast. TECHNIQUE: Multiple contiguous axial images were obtained through the abdomen and pelvis after administration of intravenous contrast. Auto Exposure Controls were utilized during the CT exam to meet ALARA standards for radiation dose reduction. All CT scans use one or more of the following dose optimizing techniques: automated exposure control, MA and/or KvP adjustment based on patient size and exam type or iterative reconstruction. INDICATION: Left lower quadrant pain. COMPARISON: 04/11/2022 FINDINGS: The lung bases are clear. The heart is normal in size. There is no pericardial effusion. The liver demonstrates no focal lesions. The spleen appears normal. The pancreas is normal. The adrenal glands appear normal. The kidneys demonstrate no enhancing masses and no hydronephrosis. There is a cortical scar in the left kidney which is unchanged. Anastomotic sutures are noted at the sigmoid colon. There is no diverticulitis seen in the lower abdomen. The appendix is normal. There are anastomotic sutures in small bowel in the right abdomen. There are mildly distended loops of small bowel in the left abdomen. These measure up to 3.7 cm in diameter. There does appear to be fecalized stool contents in the small bowel with possible transition point in the upper mid abdomen (image 15 series 7). No free fluid or free air is seen. No acute osseous abnormality is seen. There is transitional anatomy at the lumbosacral junction. IMPRESSION: 1. Distended loops of small bowel in the left lower abdomen with transition point concerning for partial bowel obstruction. 2. Postsurgical changes in the abdomen. No evidence of diverticulitis. Dictated on workstation # [id number] Dict: 07/24/22 1218 Trans: 07/24/22 1227 [facility] [id number] Interpreted by: AMBREEN BERG MD Electronically signed by: Reviewed: Reviewed by Me Departure Impression Primary Impression: Partial small bowel obstruction Additional Impression: LLQ abdominal pain Disposition: XFER SHT-TRM HOSP Condition: Stable Transfer Transfer Reason: Diversion ([facility] [place] was full and pt stable so will admit to [facility]) Time Spoke to Accepting Phy: 13:22 Transfer Progress Notes Discussed with Dr. Jarrett and Dr. Aburto both about patient and he was stable to go to [facility] for treatment. Transfer Facility: [facility] Method of Transfer: Private Vehicle Departure-Patient Inst. Referrals: CHERI MARTINEZ APRN (PCP) Primary Care Physician [facility] (Family) Primary Care Physician ANTHONY BETH MD Jul 24, 2022 11:10
[2022-07-24 11:18] LABS: CARBON DIOXIDE 26 MMOL/L (21-32); CHLORIDE 103 MMOL/L (98-107); SODIUM 140 MMOL/L (135-145)
[2022-07-24 11:19] LABS: ALANINE AMINOTRANSFERASE 52 U/L (0-55); ALBUMIN 4.8 GM/DL (3.2-4.5); ALKALINE PHOSPHATASE 98 U/L (40-136); BILIRUBIN,TOTAL 0.7 MG/DL (0.1-1.0); BUN/CREATININE RATIO 11; CALCIUM 9.3 MG/DL (8.5-10.1); CREATININE SERUM 0.99 MG/DL (0.60-1.30); GFR ESTIMATED 99; GLUCOSE 127 MG/DL (70-105); LIPASE 28 U/L (8-78); TOTAL PROTEIN 7.5 GM/DL (6.4-8.2)
[2022-07-24] MEDS ORDERED: NS 100 ML (IVPB) BAG IV ONE (11:30)
[2022-07-24] MEDS ORDERED: IOHEXOL 350 MG/ML 100 ML (OMNIPAQUE 350) VIAL IV ONE (11:30)
[2022-07-24] MEDS ORDERED: HOLD METFORMIN - RECEIVED CONTRAST 20 ML VIAL IV SCH (11:30)
--- NOTE | 2022-07-24 12:27 | Diagnostic Imaging Report ---
PROCEDURE: CT abdomen and pelvis with contrast. TECHNIQUE: Multiple contiguous axial images were obtained through the abdomen and pelvis after administration of intravenous contrast. Auto Exposure Controls were utilized during the CT exam to meet ALARA standards for radiation dose reduction. All CT scans use one or more of the following dose optimizing techniques: automated exposure control, MA and/or KvP adjustment based on patient size and exam type or iterative reconstruction. INDICATION: Left lower quadrant pain. COMPARISON: 04/11/2022 FINDINGS: The lung bases are clear. The heart is normal in size. There is no pericardial effusion. The liver demonstrates no focal lesions. The spleen appears normal. The pancreas is normal. The adrenal glands appear normal. The kidneys demonstrate no enhancing masses and no hydronephrosis. There is a cortical scar in the left kidney which is unchanged. Anastomotic sutures are noted at the sigmoid colon. There is no diverticulitis seen in the lower abdomen. The appendix is normal. There are anastomotic sutures in small bowel in the right abdomen. There are mildly distended loops of small bowel in the left abdomen. These measure up to 3.7 cm in diameter. There does appear to be fecalized stool contents in the small bowel with possible transition point in the upper mid abdomen (image 15 series 7). No free fluid or free air is seen. No acute osseous abnormality is seen. There is transitional anatomy at the lumbosacral junction. IMPRESSION: 1. Distended loops of small bowel in the left lower abdomen with transition point concerning for partial bowel obstruction. 2. Postsurgical changes in the abdomen. No evidence of diverticulitis. Dictated by: Dictated on workstation # [id number]
[2022-07-24] MEDS ORDERED: morphine INJ 10 MG/ML 1ML (SYR OR VIAL) IVP STA (13:22)
[2022-07-24 14:46] VITALS: BP 124/84
== END 2022-07-24 14:48 | disposition still patient (30) ==
LOC: EDUNIT# 10:14 → ER FS 10:19
DX: K56.600 Partial intestinal obstruction, unspecified as to cause (principal); Z28.310 Unvaccinated for COVID-19; Z87.19 Personal history of other diseases of the digestive system; Z90.49 Acquired absence of other specified parts of digestive tract
CPT/HCPCS: 36415; 74177; 80053; 81000; 83690; 85025; Q9967

== ENCOUNTER 2022-08-28 05:49 | Outpatient (CLI) | payer BC ==
[~2022-08-28] VITALS: Ht 185.4 cm; Wt 112.9 kg
[2022-08-29] MEDS ORDERED: ATOR20TA66 PO (11:41)
[2022-08-29] MEDS ORDERED: FLUT15.845 NS (11:41)
[2022-08-29] MEDS ORDERED: LISI40TA9 PO (11:41)
== END 2022-08-29 11:43 | disposition home or self-care (01) ==
LOC: PREOP 05:49
PROVIDERS: ATTEND Surgery
DX: Z01.818 Encounter for other preprocedural examination (principal)

== ENCOUNTER 2022-09-10 11:44 | Day surgery (SDC) | payer BC ==
[~2022-09-10] VITALS: Ht 185 cm; Wt 112.9 kg
[~2022-09-10 11:44] MED LIST changes: +ATOR20TA66 PO; +FLUT15.845 NS
[2022-09-10] MEDS ORDERED: LACTATED RINGERS 1,000 ML IV STA (11:53)
--- NOTE | 2022-09-10 12:08 | Progress Note-Pre Operative ---
Pre-Operative Progress Note Date of Available H&P: Aug 21, 2022 Date H&P Reviewed: Sep 10, 2022 Time H&P Reviewed: 12:07 History & Physical: H&P Reviewed, Patient Examed, No changes noted Pre-Operative Diagnosis: hx of polyps OTONIEL TAYLOR DO Sep 10, 2022 12:08
[2022-09-10 12:30] VITALS: BP 132/87
[2022-09-10] MEDS ORDERED: PROPOFOL INJECTION 50 ML IV ONE (13:56)
[2022-09-10] MEDS ORDERED: proPOfol 200 MG/20 ML (DIPRIVAN) VIAL IV ONE (14:17)
--- NOTE | 2022-09-10 14:27 | Discharge Inst-Simple/Standard ---
Discharge Inst-Standard Patient Instructions/Follow Up Plan of Care/Instructions/FU: 2 weeks Valentín Activity as Tolerated: Yes Discharge Diet: Regular Diet OTONIEL TAYLOR DO Sep 10, 2022 14:27
--- NOTE | 2022-09-10 14:30 | Anesthesia-General Post-Op ---
MAC Patient Condition Mental Status/LOC: Same as Preop Cardiovascular: Satisfactory Nausea/Vomiting: Absent Respiratory: Satisfactory Pain: Controlled Complications: Absent Post Op Complications Complications None Follow Up Care/Instructions Patient Instructions None needed. Anesthesiology Discharge Order Discharge Order Patient is doing well, no complaints, stable vital signs, no apparent adverse anesthesia problems. No complications reported per nursing. EUGENIA SPARKS CRNA Sep 10, 2022 14:30
[2022-09-10 14:31] VITALS: BP 108/51
[2022-09-10 14:36] VITALS: BP 109/60
[2022-09-10 14:40] VITALS: BP 126/69
[2022-09-10 15:15] VITALS: BP 126/69
--- NOTE | 2022-09-10 22:00 | OPERATIVE REPORT ---
DATE OF SERVICE: 09/10/2022 PREOPERATIVE DIAGNOSIS: History of polyps. POSTOPERATIVE DIAGNOSIS: Colon polyps. PROCEDURE: Colonoscopy with hot biopsy polypectomy x2. SURGEON: Otoniel Laura DO. ANESTHESIA: Per COMPENSATION SUPERVISOR. ESTIMATED BLOOD LOSS: None. COMPLICATIONS: None. INDICATIONS: The patient is a 42-year-old male with history of polyps. He understood risks and benefits of procedure and wished to proceed. Consent was signed and is on chart. DESCRIPTION OF PROCEDURE: The patient was taken to endoscopy suite, placed in left lateral recumbent position. A timeout was performed. Digital rectal exam was performed. No palpable polyps, masses or ulcerations. Scope was inserted in the rectum, advanced all the way to the cecum with minimal difficulty. Prep was adequate. Scope was then slowly retracted back. No polyps, masses, or ulcerations within the cecum, ascending, transverse and descending colon. In sigmoid colon, two small polyps were present, which hot biopsy polypectomies was performed. Scope was then continually retracted back noting the anastomosis, which had no other pathology. Scope was retracted back to the rectum where it was also retroflexed noting no other pathology. Scope was returned to its normal position, slowly withdrawn until completely removed. The patient tolerated the procedure well with no complications, taken to recovery room in stable condition. RECOMMENDATIONS: The patient will need repeat colonoscopy in 5 years. Any issues before that, be seen at that time. The patient will follow up biopsy results in two weeks. Job ID: [id number] DocumentID: [id number] Dictated Date: 09/10/2022 14:27:32 Instruction Dean Date: 09/10/2022 21:58:00 Dictated By: OTONIEL LAURA DO
== END 2022-09-10 15:25 | disposition home or self-care (01) ==
LOC: ENDO 11:44
PROVIDERS: ATTEND Surgery
DX: Z12.11 Encounter for screening for malignant neoplasm of colon (principal); K63.5 Polyp of colon; Z87.891 Personal history of nicotine dependence; E66.01 Morbid (severe) obesity due to excess calories; Z68.33 Body mass index [BMI] 33.0-33.9, adult; Z85.528 Personal history of other malignant neoplasm of kidney; Z87.19 Personal history of other diseases of the digestive system; Z90.49 Acquired absence of other specified parts of digestive tract; Z28.310 Unvaccinated for COVID-19
CPT/HCPCS: 88305